=== PATIENT | female | born 1940 | race Caucasian/White ===

== ENCOUNTER → 2016-09-27 | Outpatient (REF) | payer MEDICARE ==
[2016-09-27 13:46] LABS: PERCENT SATURATION 25.4 % (13.2-37.4)
== END ==
LOC: M LAB REF 12:53
PROVIDERS: ATTEND Internal Medicine
DX: D50.9 Iron deficiency anemia, unspecified (principal)

== ENCOUNTER → 2016-11-02 | Outpatient (CLI) | payer MEDICARE ==
--- NOTE | 2016-11-02 12:35 | REPMRS ---
Patient History The patient states she has not had a clinical breast exam in over a year. Patient is postmenopausal and is nulliparous. No known family history of cancer. Digital Woman Screen Mammo: November 02, 2016 - Exam #: [id number] Bilateral CC and MLO view(s) were taken. Technologist: Yolanda Kim, Technologist Prior study comparison: October 05, 2012, bilateral digital mammo screening bilat, performed at [facility]. FINDINGS: The breast tissue is heterogeneously dense. This may lower the sensitivity of mammography. There has been no change in the appearance of the mammogram from the prior studies. There is a moderate amount of residual fibroglandular tissue which is fairly symmetric. There is no interval development of dominant mass, areas of architectural distortion, or clustered microcalcification typical of malignancy. ASSESSMENT: BI-RADS/ACR category 1 mammogram. Negative. Recommendation Routine screening mammogram in 1 year (for women over age 40). This mammogram was interpreted with the aid of an FDA-approved computer-aided dectection system. Electronically Signed By: Maynor Gloria MD 11/02/16 [id number]
--- NOTE | 2016-11-03 09:01 | DEXA ---
AP SPINE L1 - L4 0.851 -2.8 -0.7 LT FEMUR TOTAL 0.644 -2.9 -0.9 RT FEMUR TOTAL 0.657 -2.8 -0.8 TOTAL BODY TOTAL OTHER DUAL FEMUR FRAX* ASSESSMENT Risk factors: History of adult fracture. 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 The density of the spine has decreased 5.1% since 07/2014. The density of the left hip has decreased 9.2% since 07/2014. The density of the right hip has decreased 5.3% since 07/2014. The decreased density of the spine does represent a significant change. The decreased density of the left hip does represent a significant change. The decreased density of the right hip does represent a significant change. FOLLOW-UP: Recommendation for the next bone density exam: 2 years. YAMILKA
== END ==
LOC: M WHC 11:03
PROVIDERS: ATTEND Internal Medicine
DX: Z12.31 Encounter for screening mammogram for malignant neoplasm of breast (principal); M85.80 Other specified disorders of bone density and structure, unspecified site; M81.0 Age-related osteoporosis without current pathological fracture
CPT/HCPCS: 77080; G0202

== ENCOUNTER 2016-12-04 18:44 | Emergency (ER) | payer MEDICARE ==
[~2016-12-04] VITALS: Ht 162.6 cm; Wt 55.3 kg
[2016-12-04] MEDS ORDERED: ADV500INH (18:55)
[2016-12-04] MEDS ORDERED: FURO20TA2 (18:55)
[2016-12-04] MEDS ORDERED: ALEN70TA39 (18:55)
[2016-12-04] MEDS ORDERED: SERT-155 (18:55)
[2016-12-04] MEDS ORDERED: FERR32TA (18:55)
[2016-12-04] MEDS ORDERED: LOSA50TA20 (18:55)
[2016-12-04] MEDS ORDERED: MONT10TA2 (18:55)
[2016-12-04 20:12] VITALS: BP 137/60
--- NOTE | 2016-12-04 20:37 | REP ---
Clinical: Trauma. Technique: AP and lateral views of the right humerus. Findings: Age-related osteopenia and degenerative changes are appreciated. No acute fracture or dislocation. Impression: Age-related changes. No acute fracture dislocation. Signed by Khanh Vaughn MD 12/04/2016 08:29 P
--- NOTE | 2016-12-04 20:38 | REP ---
Clinical: Trauma. Technique: AP and lateral views of the right forearm. Findings: Age-related osteopenia and degenerative changes at the elbow and wrist. No acute fracture dislocation. No subcutaneous emphysema or radiodense foreign body. Impression: No acute fracture or dislocation. Signed by Khanh Vaughn MD 12/04/2016 08:30 P
== END 2016-12-04 20:22 | disposition home or self-care (01) ==
LOC: M ED 19:37
DX: S50.11XA Contusion of right forearm, initial encounter (principal); W54.1XXA Struck by dog, initial encounter; Y92.019 Unspecified place in single-family (private) house as the place of occurrence of the external cause; Y93.89 Activity, other specified; Y99.9 Unspecified external cause status; I50.9 Heart failure, unspecified; J44.9 Chronic obstructive pulmonary disease, unspecified; Z79.51 Long term (current) use of inhaled steroids; Z79.899 Other long term (current) drug therapy

== ENCOUNTER 2017-01-24 12:05 | Observation (INO) | payer MEDICARE ==
[~2017-01-24] VITALS: Ht 167.6 cm; Wt 53.9 kg
[~2017-01-24 12:05] MED LIST: ADV500INH; ALEN70TA39 PO; FERR32TA; FURO20TA2 PO; LOSA50TA20; MONT10TA2 PO; SERT-155 PO
[2017-01-24] MEDS ORDERED: PROL60SO INJ (12:21)
[2017-01-24] MEDS ORDERED: PERCOCET 5MG/325MG TAB PO ONE ×2 (13:00→15:15)
[2017-01-24 13:34] LABS: BASO % 0.9 % (0.0-1.0); EOS # 0.1 K/mm3 (0.0-0.50); LARGE UNSTAINED CELL # 0.1 K/mm3 (0.0-0.4); LARGE UNSTAINED CELL % 1.9 % (0.0-4.0); LYMPH # 0.9 K/mm3 (1.5-4.5); LYMPH % 23.3 % (24.0-44.0); MEAN CORPUSCULAR HEMOGLOBIN 28.5 pg (27.0-33.0); MEAN CORPUSCULAR HGB CONC 31.3 g/dl (32.0-36.5); MEAN CORPUSCULAR VOLUME 90.9 fl (80.0-96.0); MONO # 0.3 K/mm3 (0.0-0.8); MONO % 7.8 % (0.0-5.0); NEUTROPHILS # 2.4 K/mm3 (1.8-7.7); NEUTROPHILS % 64.1 % (36.0-66.0); PLATELET COUNT, AUTOMATED 184 k/mm3 (150-450); RED CELL DISTRIBUTION WIDTH 13.2 % (11.5-14.5); WHITE BLOOD COUNT 3.7 K/mm3 (4.0-10.0)
[2017-01-24 13:45] LABS: ANION GAP 2 MEQ/L (8-16); BLOOD UREA NITROGEN 19 MG/DL (7-18); CALCIUM LEVEL 8.9 MG/DL (8.8-10.2); CARBON DIOXIDE LEVEL 33 MEQ/L (21-32); CHLORIDE LEVEL 106 MEQ/L (98-107); CREATININE FOR GFR 0.62 MG/DL (0.55-1.02); GLOMERULAR FILTRATION RATE > 60.0 (>39); GLUCOSE, FASTING 73 MG/DL (83-110); SODIUM LEVEL 141 MEQ/L (136-145)
[2017-01-24 14:04] LABS: ERYTHROCYTE SEDIMENTATION RATE 10 mm/hr (0-30)
--- NOTE | 2017-01-24 14:42 | REP ---
THORACIC SPINE: Three views of the thoracic spine are performed. There are old compression deformities of T2, T4, and L1 vertebral bodies, unchanged since the CT scan of 12/31/2014. No acute fracture or dislocation is seen. Mild diffuse degenerative changes are present. There is curvature of the thoracic spine convex to the right. The posterior elements are intact. IMPRESSION: Degenerative changes. Old compression deformities as above without evidence of acute fracture or dislocation. Signed by Maynor Gloria MD 01/24/2017 04:45 P
--- NOTE | 2017-01-24 14:43 | REP ---
LEFT SHOULDER: Three views of the left shoulder are performed. There is no acute fracture or dislocation. There is mild spurring and joint space narrowing at the acromioclavicular joint. IMPRESSION: Degenerative changes. No evidence of acute fracture or dislocation. Signed by Maynor Gloria MD 01/24/2017 04:45 P
--- NOTE | 2017-01-24 15:02 | REP ---
CHEST, TWO VIEWS: HISTORY: Chest pain. COMPARISON: 05/18/2012. The lungs are hyperinflated. Linear densities are present in the left lower lobe consistent with scarring. There is blunting of the left costophrenic angle due to pleural thickening. The heart is normal in size. The pulmonary vasculature is normal in appearance. The bony structure is osteopenic. There is an old compression fracture of a lower thoracic vertebral body with severe height loss. IMPRESSION: Left lower lobe scarring. Signed by Carlos Andrade MD 01/24/2017 03:21 P
[2017-01-24] MEDS ORDERED: ASPIRIN 81 MG CHEW TABLET PO ONE (15:30)
[2017-01-24] MEDS ORDERED: ISOVUE-370 76% 100ML VIAL (Q9967) As Ordered ONE (16:01)
--- NOTE | 2017-01-24 16:01 | HPEPDOC ---
General Date of Admission 01-24-17 Chief Complaint The patient is a 76-year-old female admitted with a reason for visit of Shoulder Pain. Source: Patient Timing/Duration: Day(s) (3) Severity: Mild History of Present Illness Ms. Orourke is a pleasant 76 y/o female with past medical history of osteopenia, depression, HTN, COPD who presents w/ CC of three days of achy left shoulder and arm pain, the pt states that three days ago she noticed some achy pain in her left shoulder that traveled down her left arm, stopping before it reached her fingertips. The pt states it did not radiate to her neck or chest or back and states that standing around makes the pain worse as it causes her to concentrate on it, apparently laying back on her arm makes it feel better. She denied associated n/v, cough or SOB, sweating or experiencing a racing heart. States the arm pain is not worsened with exertion nor taking a deep breath in nor palpation of the arm. She denies paralysis, loss of sensation or weakness associated with her left arm. She denies fever, muscle aches or chills, denies prolonged immobility nor hx of stroke, clots or heart attack. Denies change in vision nor headache. She states the pain is about a 2/10 currently. Pt denies hx of heart failure or extremity swelling but states she takes Lasix and has been for quite a while, she is unsure why. She does admit to chronic episodes many years ago of re-current pneumonia. She has no other active complaints. Home Medications Scheduled (Sertraline HCl) 50 Mg Tab, 50 MG PO DAILY, (Reported) (Prolia) 60 Mg/Ml Shalonda, 60 MG INJ ASDIRECTED, (Reported) Every 6 Months Alendronate Sodium (Alendronate Sodium) 70 Mg Tab, 70 MG PO ASDIRECTED, ( Reported) Weekly-Mondays Ferrous Gluconate (Ferrous Gluconate) 324 Mg Tab, 324 MG PO DAILY, (Reported) Furosemide (Furosemide) 20 Mg Tab, 20 MG PO DAILY, (Reported) Losartan Potassium (Losartan Potassium) 50 Mg Tab, 50 MG PO DAILY, (Reported) Montelukast Sodium (Montelukast Sodium) 10 Mg Tab, 10 MG PO DAILY, (Reported) Allergies Coded Allergies: No Known Allergies (Unverified , 12/04/16) Family History Significant Family History: No pertinent family hx Social History * Smoker: Denies Alcohol: Denies Drugs: denies Psychosocial History: No pertinent psych hx Review of Symptoms Constitutional: Denies: Chills, Fever, Malaise, Night Sweats, Weakness Eyes: Denies: Pain, Vision change, Conjunctivae inflammation ENT: Denies: Head Aches Skin: Denies: Rash, Lesions Pulmonary: Denies: Dyspnea, Cough, Pleuritic Chest Pain Cardiovascular: Denies: Chest Pain, Palpitations, Orthopnea, Edema, Lt Headedness Gastrointestinal: Denies: Nausea, Vomiting, Abdominal Pain, Diarrhea, Constipation Genitourinary: Denies: Dysuria Musculoskeletal: Reports: Shoulder Pain, Arm Pain (left), Denies: Neck Pain, Spasms Neurological: Denies: Weakness, Numbness, Incoordination, Change in speech Psych: Reports: Mood Normal Physical Examination General Exam: Positive: Alert, Cooperative, No Acute Distress Eye Exam: Positive: Conjunctiva & lids normal, EOMI, Negative: Sclera icteric, Ptosis ENT Exam: Positive: Atraumatic, Mucous membr. moist/pink, Pharynx Normal, Tongue Midline, Nares Patent, Negative: Pharyngeal Edema Neck Exam: Positive: Supple, Negative: JVD Chest Exam: Negative: Normal air movement (pt has coarse crackles in LLL where area of chronic scarring is located), Rales, Rhonchi, Wheezing, Diminished Heart Exam: Positive: Rate Normal, Normal S1, Normal S2, Negative: Gallops, Murmurs, Rubs Telemetry: Positive: No significant arrhythmia Abdomen Exam: Positive: Normal bowel sounds, Soft, Negative: Tenderness, Hepatospenomegaly Extremity Exam: Positive: Normal pulses, Negative: Clubbing, Cyanosis, Edema Psych Exam: Positive: Mental status NL Vital Signs Vital Signs Date Time Temp Pulse Resp B/P (MAP) Pulse Ox O2 Delivery O2 Flow Rate FiO2 01/24/17 15:15 16 01/24/17 13:23 62 133/69 (90) 96 Room Air 01/24/17 12:06 98.2 Laboratory Data Labs 24H Laboratory Tests 2 01/24/17 13:11: White Blood Count 3.7L, Red Blood Count 4.62, Hemoglobin 13.2, Hematocrit 42.0, Mean Corpuscular Volume 90.9, Mean Corpuscular Hemoglobin 28.5, Mean Corpuscular Hemoglobin Concent 31.3L, Red Cell Distribution Width 13.2, Platelet Count 184, Neutrophils (%) (Auto) 64.1, Lymphocytes (%) (Auto) 23.3L, Monocytes (%) (Auto) 7.8H, Eosinophils (%) (Auto) 2.0, Basophils (%) (Auto) 0.9 , Neutrophils # (Auto) 2.4, Lymphocytes # (Auto) 0.9L, Monocytes # (Auto) 0.3, Eosinophils # (Auto) 0.1, Basophils # (Auto) 0.0, Large Unclassified Cells % 1.9 , Large Unclassified Cells # 0.1, Erythrocyte Sedimentation Rate 10, Anion Gap 2L, Glomerular Filtration Rate > 60.0, Blood Urea Nitrogen 19H, Creatinine 0.62 , Sodium Level 141, Potassium Level 5.0, Chloride Level 106, Carbon Dioxide Level 33H, Calcium Level 8.9, Troponin I < 0.02 CBC/BMP Laboratory Tests 01/24/17 13:11 Red Blood Count 4.62, Mean Corpuscular Volume 90.9, Mean Corpuscular Hemoglobin 28.5, Mean Corpuscular Hemoglobin Concent 31.3 L, Red Cell Distribution Width 13.2, Neutrophils (%) (Auto) 64.1, Lymphocytes (%) (Auto) 23.3 L, Monocytes (%) (Auto) 7.8 H, Eosinophils (%) (Auto) 2.0, Basophils (%) (Auto) 0.9, Neutrophils # (Auto) 2.4, Lymphocytes # (Auto) 0.9 L, Monocytes # (Auto) 0.3, Eosinophils # (Auto) 0.1, Basophils # (Auto) 0.0, Calcium Level 8.9 Problems (1) Left shoulder pain Status: Acute Response to Treatment: Stable Problem Text: MSK vs ACS R/O pts left shoulder and arm pain is non-reproducible on exam, sensation, reflexes and strength are preserved as well as structural integrity of her GH joint Believe this is musculoskeletal in origin and not due to radiation of pain for ACS. Left shoulder X-ray negative for acute findings thoracic spine x-ray show degen changes, old compression deformities w/o fracture or dislocation CTA neg. for PE will schedule PRN Nitro., lipitor 40 mg QD & continue pts Lasix., although at this time uncertain why she is on it? ( no echo. 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 neg in ED, given ASA in ED EKG in ED showed minimal ST elevation in 2 continuous leads V2 and V3 for two consecutive beats ( about 1 mm elevation), however past EKG from 2013 also showed minimal elevation in same leads-since pt is an elderly female w/ essentially no risk factors for ACS- will observe for 24 hours in tele. ED has spoken to Dr. Sharpe who has recommended outpt stress test when pt d/c- likely tomorrow if no events overnight continue to monitor (2) Chest pain Status: Acute Response to Treatment: Stable Problem Text: pt has no chest wall pain or discomfort on exam even with physical palpitation of chest suspect this could have been radiation of left shoulder pain (please see above) CXR shows LLL scarring continue to monitor will order Nitro paste PRN (3) Leukopenia Status: Acute Response to Treatment: Stable Problem Text: 3.7 now was 4.8 in 2013 would continue to monitor likely this is pt's baseline (4) DVT prophylaxis Status: Acute Response to Treatment: Stable Problem Text: scd teds Plan / VTE VTE Prophylaxis Ordered?: Yes GME ATTESTATION GME ATTESTATION My preceptor for this patient encounter was physically present in the building during the encounter and was fully available. As needed, all aspects of the patient interview, examination, medical decision making process, and medical care plan development were reviewed and approved by the preceptor. Preceptor is aware and concurs with the plan as stated in the body of this note and will attest to such by his/her cosignature. POWER MADRIGAL DO Jan 24, 2017 16:01
--- NOTE | 2017-01-24 16:30 | REP ---
CT of the chest with IV contrast, CT pulmonary artery angiography: Comparison is 12/31/2014. There are no emboli in the pulmonary trunk or central pulmonary arteries. There are no emboli in the pulmonary lobe or segment branches. There are no infiltrates or effusions. There is chronic stable parenchymal scarring in the left lung. There is a stable pleural based 7 mm lung nodule medially in the right lower lobe on image 45, unchanged. There is no mediastinal or hilar adenopathy. No axillary adenopathy. The thoracic aorta is unremarkable except for occasional calcified atheroma. Cardiac size is normal. There are the visualized upper abdominal contents are unremarkable. Impression: There are no pulmonary emboli. There is chronic stable scarring in the left lung. There is a stable granuloma in the right lower lobe. No acute infiltrate or effusion. No adenopathy or mass. Signed by Maynor Perez MD 01/24/2017 04:21 P
[2017-01-24] MEDS ORDERED: FERR325T16 PO (18:13)
[2017-01-24] MEDS ORDERED: LOSA50TA20 PO (18:13)
[2017-01-24] MEDS ORDERED: NITROGLYCERIN 0.3 MG SUBL TAB SL PRN (18:45)
[2017-01-24] MEDS ORDERED: ATORVASTATIN 20 MG TAB PO ONE (18:45)
--- NOTE | 2017-01-24 19:05 | ECGEPIP ---
Stationary ECG Study [facility] - ED Test Date: 2017-01-24 Pat Name: GEORGI LAM Department: Room: - Gender: F [employer]: ct : 1940 Requested By: Isela Wolf Order Number: [id number] Reading MD: Isela Wolf Measurements Intervals [place] Rate: 65 P: 76 [place]: 163 QRS: 2 QRSD: 97 T: 24 QT: 388 QTc: 404 Interpretive Statements SINUS RHYTHM POSSIBLE LEFT ATRIAL ENLARGEMENT INCOMPLETE RIGHT BUNDLE BRANCH BLOCK Rr' SIMILAR 10/25/12 Electronically Signed On 01-24-2017 19:05:47 EDT by Isela Wolf
[2017-01-24 20:10] VITALS: BP 143/70
[2017-01-24] MEDS ORDERED: SLF 3 ML SYR IV PRN (20:30)
[2017-01-24] MEDS: SLF 3 ML SYR IV SCH (22:00)
[2017-01-24 23:59] VITALS: BP 119/61
[2017-01-25 04:45] VITALS: BP 142/68
[2017-01-25] MEDS: SLF 3 ML SYR IV SCH (06:03)
[2017-01-25] MEDS ORDERED: ALENDRONATE 35MG TABLET PO ONE (07:00)
[2017-01-25 07:26] LABS: BASO % 0.5 % (0.0-1.0); EOS # 0.2 K/mm3 (0.0-0.50); EOS % 4.2 % (0.0-3.0); LARGE UNSTAINED CELL # 0.1 K/mm3 (0.0-0.4); LARGE UNSTAINED CELL % 2.9 % (0.0-4.0); LYMPH # 1.3 K/mm3 (1.5-4.5); LYMPH % 30.4 % (24.0-44.0); MEAN CORPUSCULAR HEMOGLOBIN 29.1 pg (27.0-33.0); MEAN CORPUSCULAR HGB CONC 32.3 g/dl (32.0-36.5); MEAN CORPUSCULAR VOLUME 90.1 fl (80.0-96.0); MONO # 0.3 K/mm3 (0.0-0.8); MONO % 8.1 % (0.0-5.0); NEUTROPHILS % 53.9 % (36.0-66.0); PLATELET COUNT, AUTOMATED 171 k/mm3 (150-450); RED CELL DISTRIBUTION WIDTH 13.3 % (11.5-14.5); WHITE BLOOD COUNT 3.8 K/mm3 (4.0-10.0)
[2017-01-25 07:59] LABS: ANION GAP 6 MEQ/L (8-16); BLOOD UREA NITROGEN 14 MG/DL (7-18); CALCIUM LEVEL 8.3 MG/DL (8.8-10.2); CARBON DIOXIDE LEVEL 29 MEQ/L (21-32); CHLORIDE LEVEL 105 MEQ/L (98-107); CREATININE FOR GFR 0.55 MG/DL (0.55-1.02); GLOMERULAR FILTRATION RATE > 60.0 (>39); GLUCOSE, FASTING 86 MG/DL (83-110); POTASSIUM SERUM 4.2 MEQ/L (3.5-5.1); SODIUM LEVEL 140 MEQ/L (136-145)
[2017-01-25 08:00] VITALS: BP 150/70
[2017-01-25] MEDS ORDERED: MONTELUKAST 10 MG TAB PO SCH (09:00)
[2017-01-25] MEDS ORDERED: SERTRALINE HCL 50 MG TAB PO SCH (09:00)
[2017-01-25] MEDS ORDERED: LOSARTAN 50 MG TAB PO SCH (09:00)
[2017-01-25] MEDS ORDERED: ATORVASTATIN 20 MG TAB PO SCH (09:00)
[2017-01-25] MEDS ORDERED: FUROSEMIDE 20 MG TAB PO SCH (09:00)
[2017-01-25] MEDS ORDERED: ASPIRIN 81 MG ENTERIC TAB PO SCH (09:00)
[2017-01-25] MEDS ORDERED: FERROUS GLUCONATE 324 MG TAB PO SCH (09:00)
[2017-01-25 09:40] VITALS: BP 150/70
[2017-01-25 12:00] VITALS: BP 146/72
[2017-01-25] MEDS ORDERED: ATOR1TAB21 PO (13:40)
[2017-01-25] MEDS ORDERED: ASPI81TAEC PO (13:40)
--- NOTE | 2017-01-25 14:01 | DS.PDOC ---
Discharge Summary General Date of Admission Jan 24, 2017 at 17:53 Date of Discharge 01-25-17 Discharge Summary PROCEDURES PERFORMED DURING STAY: None ADMITTING DIAGNOSES: 1. Left shoulder pain r/o ACS vs MSK etiology 2. Chest pain 3. Leukopenia DISCHARGE DIAGNOSES: 1. Left shoudler and arm pain 2. Bradycardia 3. Leukopenia COMPLICATIONS/CHIEF COMPLAINT: Chest Pain. HISTORY OF PRESENT ILLNESS: Ms. Orourke is a pleasant 76 y/o female who presented w/ CC of acute onset three days prior of achy left shoulder and arm pain. HOSPITAL COURSE: During the course of her hospital stay, the pt did not again experience any left arm pain, nor chest pain or discomfort, she was not ever SOB nor had palpitations. On day of d/c she stated she was feeling quite well. The pts cardiac enzymes were trended and troponins x4 were all negative, repeat EKG on day of d/c did not show any interval change from prior days EKG in ED that showed minimal 1 mm elevation in V1 and V2 for two consectuive beats, consistent with early re-polarization. Pt denied n/v and stated that she was eating well. She was admitted to cardiac tele unit and there were no concerning rhythm disturbances nor changes seen overnight on telemetry, she did have a few episodes of bradycardia w/ rate in the 50's, however patient was asx. suspect this is normal for her. OF note when pt was first admitted, there had been concern of chest pain, however on day of admission/presentation she denied active chest pain, stating the pain and achy discmfort was located solely in her left shoulder and radiating down her arm. DISCHARGE MEDICATIONS: Please see below. ALLERGIES: Please see below. PHYSICAL EXAMINATION ON DISCHARGE: VITAL SIGNS: Please see below. GENERAL: pleasant, conversant, in NAD, sitting comfortably in bed not-labored HEENT: NCAT, EOMI, PERRLA, tongue midline, moist mucus membranes, nares patent b /l,neck supple, trachea midline, no JVD appreciated CARDIOVASCULAR EXAMINATION: RRR, no murmurs, gallops or rubs appreciated, normal s1 and s2 RESPIRATORY EXAMINATION: CTA b/l, no wheezing. rales appreciated, note pt does have crackles on LLL-she has CXR (please see below) findings consistent with chronic scarring from past medical history of chronic and recurring pneumonia. ABDOMINAL EXAMINATION: soft, non-distended, nabsx4, no rebound ridgity or guarding appreciated, no hepatomegaly EXTREMITIES: no cyanosis,clubbing or edema appreciated SKIN: intact NEUROLOGICAL EXAMINATION: no focal deficits appreciated PSYCHIATRIC EXAMINATION: normal affect, appropriate mood LABORATORY DATA: Please see below. IMAGING: CTA chest 01-24-17 Impression: There are no pulmonary emboli. There is chronic stable scarring in the left lung. There is a stable granuloma in the right lower lobe. No acute infiltrate or effusion. No adenopathy or mass. CXR 01-24-17 IMPRESSION: Left lower lobe scarring. Left shoulder x-ray 01-24-17 IMPRESSION: Degenerative changes. No evidence of acute fracture or dislocation. Thoracic Spine x-ray 01-24-17 IMPRESSION: Degenerative changes. Old compression deformities as above without evidence of acute fracture or dislocation. PROGNOSIS: Stable ACTIVITY: As tolerated DIET: As tolerated DISCHARGE PLAN: Pt is d/c on lipitor 40 mg QD, baby aspirin daily and appt was made by nurse for f/u with Cardiology outpt for future stress test., pt is to f/u with PCP within one week of d/c as well. Pt is not on any home medications that would cause bradycardia, would recommend caution when prescribing drugs that can cause bradycardia as pt had brief episodes of asymptomatic slow HR in the unit. ( HR 50's), suspect this is normal for her. DISPOSITION: Stable DISCHARGE INSTRUCTIONS: 1. F/u with cardiology within one week of d/c 2. F/u with PCP within one week of d/c ITEMS TO FOLLOWUP ON ON OUTPATIENT: 1. F/u with Cardiology and PCP within one week of d.c DISCHARGE CONDITION: Stable TIME SPENT ON DISCHARGE: Greater than 30 minutes. Vital Signs/I&Os Vital Signs Date Time Temp Pulse Resp B/P (MAP) Pulse Ox O2 Delivery O2 Flow Rate FiO2 01/25/17 12:00 97.7 60 18 146/72 (96) 96 Room Air I&O- Last 24 Hours up to 6 AM 01/25/17 06:00 Intake Total 300 ml Output Total 0 ml Balance 300 ml Laboratory Data Labs 24H Laboratory Tests 2 01/24/17 19:16: Total Creatine Kinase 37, Creatine Kinase MB 1.0, Creatine Kinase MB Relative Index 2.70, Troponin I < 0.02 01/24/17 23:57: Total Creatine Kinase 36, Creatine Kinase MB 1.0, Creatine Kinase MB Relative Index 2.77, Troponin I < 0.02 01/25/17 07:11: Total Creatine Kinase 35, Creatine Kinase MB 1.0, Creatine Kinase MB Relative Index 2.85, Troponin I < 0.02, White Blood Count 3.8L, Red Blood Count 4.42, Hemoglobin 12.9, Hematocrit 39.9, Mean Corpuscular Volume 90.1, Mean Corpuscular Hemoglobin 29.1, Mean Corpuscular Hemoglobin Concent 32.3, Red Cell Distribution Width 13.3, Platelet Count 171, Neutrophils (%) (Auto) 53.9, Lymphocytes (%) (Auto) 30.4, Monocytes (%) (Auto) 8.1H, Eosinophils (%) (Auto) 4.2H, Basophils (%) (Auto) 0.5, Neutrophils # (Auto) 2.0, Lymphocytes # (Auto) 1.3L, Monocytes # (Auto) 0.3, Eosinophils # (Auto) 0.2, Basophils # (Auto) 0.0, Large Unclassified Cells % 2.9, Large Unclassified Cells # 0.1, Anion Gap 6L, Glomerular Filtration Rate > 60.0, Blood Urea Nitrogen 14, Creatinine 0.55, Sodium Level 140, Potassium Level 4.2, Chloride Level 105, Carbon Dioxide Level 29, Calcium Level 8.3L CBC/BMP Laboratory Tests 01/25/17 07:11 Red Blood Count 4.42, Mean Corpuscular Volume 90.1, Mean Corpuscular Hemoglobin 29.1, Mean Corpuscular Hemoglobin Concent 32.3, Red Cell Distribution Width 13.3 , Neutrophils (%) (Auto) 53.9, Lymphocytes (%) (Auto) 30.4, Monocytes (%) (Auto ) 8.1 H, Eosinophils (%) (Auto) 4.2 H, Basophils (%) (Auto) 0.5, Neutrophils # ( Auto) 2.0, Lymphocytes # (Auto) 1.3 L, Monocytes # (Auto) 0.3, Eosinophils # ( Auto) 0.2, Basophils # (Auto) 0.0, Calcium Level 8.3 L, Total Creatine Kinase 35 Discharge Medications Scheduled (Sertraline HCl) 50 Mg Tab, 50 MG PO DAILY, (Reported) (Prolia) 60 Mg/Ml Shalonda, 60 MG INJ ASDIRECTED, (Reported) Every 6 Months Alendronate Sodium (Alendronate Sodium) 70 Mg Tab, 70 MG PO ASDIRECTED, ( Reported) Weekly-Mondays Aspirin (Aspirin EC) 81 Mg Tabec, 81 MG PO DAILY Atorvastatin Calcium (Atorvastatin Calcium) 20 Mg Tab, 40 MG PO DAILY Ferrous Gluconate (Ferrous Gluconate) 324 Mg Tab, 324 MG PO DAILY, (Reported) Furosemide (Furosemide) 20 Mg Tab, 20 MG PO DAILY, (Reported) Losartan Potassium (Losartan Potassium) 50 Mg Tab, 50 MG PO DAILY, (Reported) Montelukast Sodium (Montelukast Sodium) 10 Mg Tab, 10 MG PO DAILY, (Reported) Allergies Coded Allergies: No Known Allergies (Unverified , 12/04/16) POWER MADRIGAL DO Jan 25, 2017 14:01 LYUDMILA ERIC Jan 26, 2017 17:04
--- NOTE | 2017-01-25 20:28 | ECGEPIP ---
Stationary ECG Study [facility] Test Date: 2017-01-25 Pat Name: GEORGI LAM Department: Room: [place] [address] Gender: F [employer] Specialist: [place] : 1940 Requested By: POWER MADRIGAL Order Number: [id number] Reading MD: Benny Pineda Measurements Intervals [place] Rate: 56 P: 72 [place]: 177 QRS: -9 QRSD: 89 T: 34 QT: 429 QTc: 415 Interpretive Statements SINUS BRADYCARDIA Normal otherwise Slower rate than 01/24/17. Electronically Signed On 01-25-2017 20:27:41 EDT by Benny Pineda
[2017-01-31] MEDS ORDERED: ALENDRONATE 70 MG TABLET (FOSAMAX) PO SCH (07:00)
== END 2017-01-25 14:08 | disposition home or self-care (01) ==
LOC: M ED 12:05 → M ED INP 17:53 → M PCU 20:10
PROVIDERS: ADMIT Internal Medicine; ATTEND Hospitalist
DX: M79.602 Pain in left arm (principal); M25.512 Pain in left shoulder; R07.89 Other chest pain; R00.1 Bradycardia, unspecified; D72.819 Decreased white blood cell count, unspecified; I10 Essential (primary) hypertension; J44.9 Chronic obstructive pulmonary disease, unspecified; M89.9 Disorder of bone, unspecified; Z79.82 Long term (current) use of aspirin; Z79.899 Other long term (current) drug therapy; R68.84 Jaw pain
CPT/HCPCS: 36415; 71020; 71275; 72072; 73030; 80048; 82550; 82553; 84484; 85025; 85652; 93005; 99285; G0378; Q9967

== ENCOUNTER → 2017-02-09 | Outpatient (REF) | payer MEDICARE ==
[~2017-02-09] MED LIST changes: +ASPI81TAEC PO; +ATOR1TAB21 PO; +FERR325T16 PO; +LOSA50TA20 PO; +PROL60SO INJ
[2017-02-09 17:16] LABS: PERCENT SATURATION 29.6 % (13.2-45.0)
[2017-02-09 19:11] LABS: MEAN CORPUSCULAR HGB CONC 31.7 g/dl (32.0-36.5); MEAN CORPUSCULAR VOLUME 91.5 fl (80.0-96.0); REASON FOR REVIEW COMPREHENSIVE REVIEW; RED CELL DISTRIBUTION WIDTH 13.3 % (11.5-14.5); WHITE BLOOD COUNT 3.9 K/mm3 (4.0-10.0)
[2017-02-09 19:37] LABS: EOSINOPHILS 2 % (0-5)
== END ==
LOC: M LAB REF 16:44
PROVIDERS: ATTEND Internal Medicine
DX: D72.819 Decreased white blood cell count, unspecified (principal)

== ENCOUNTER → 2017-10-25 | Outpatient (REF) | payer MEDICARE ==
[2017-10-25 17:43] LABS: FERRITIN 100 NG/ML (8-252); IRON (FE) 70 UG/DL (50-170); PERCENT SATURATION 19.7 % (13.2-45.0); TOTAL IRON BINDING CAPACITY 356 UG/DL (250-450)
== END ==
LOC: M LAB REF 16:38
DX: D50.9 Iron deficiency anemia, unspecified (principal)
CPT/HCPCS: 83550

== ENCOUNTER → 2017-12-07 | Day surgery (SDC) | payer MEDICARE ==
[~2017-12-07] MED LIST changes: -ADV500INH; -ALEN70TA39 PO; -ASPI81TAEC PO; -ATOR1TAB21 PO; +BSS with VANC/TOB/EPI for EYE CASES IR; +CYCLOPENTOLATE 2% OPHTH SOLN 2ML BTL OD; -FERR325T16 PO; -FERR32TA; -FURO20TA2 PO; +HEALON DUET (HEALON 10MG/ML 0.55ML & HEALON ENDOCOAT 30MG/ML 0.85ML) As Ordered; +LIDOCAINE 1% SDV 5 ML VIAL As Ordered; +LIDOCAINE 3.5 % 1ML OPHTH TOPICAL GEL OU; -LOSA50TA20; -LOSA50TA20 PO; -MONT10TA2 PO; +MOXIFLOXACIN IN BSS 0.25MG/0.25ML INTRACAMERAL INJ (OR EYE ONLY)(J2280) As Ordered; +OFLOXACIN 0.3 % (OCUFLOX) OPTH SOL 5ML OD; +PHENYLEPHRINE 2.5% OPHTH SOL 2ML OD; +PHENYLEPHRINE HCL 10 % OPHTH. SOL 5ML OD; +POVIDONE-IODINE 5% OPHTH PREP SOL 30ML As Ordered; -PROL60SO INJ; +PROPOFOL 200 MG/20 ML VIAL As Ordered; -SERT-155 PO; +TRIAMCINOLONE PRES FR 40 MG/ML 1ML(TRIESENCE)(OR EYE ONLY)(J3300 PER 1MG) As Ordered; +TROPICAMIDE 1% OPHTH SOLN 2ML OD; +fentaNYL 100 MCG/2 ML INJECTION (J3010) As Ordered
== END | disposition home or self-care (01) ==
LOC: M SDC 14:00
DX: H26.9 Unspecified cataract (principal); Z53.9 Procedure and treatment not carried out, unspecified reason

== ENCOUNTER 2018-06-01 11:07 | Inpatient (IN) | payer MEDICARE ==
[2018-06-01] MEDS: ONDANSETRON 4MG/2ML VIAL (J2405) IV ×2 (11:18→12:00)
[2018-06-01] MEDS: MORPHINE 4 MG/ML 1ML VIAL/SYRINGE (J2270) IV ×3 (11:18→21:55)
[2018-06-01] MEDS ORDERED: MORPHINE 4 MG/ML 1ML VIAL/SYRINGE (J2270) IV (12:00)
[2018-06-01] MEDS: KETOROLAC 30 MG/ML VIAL (J1885) IV (12:09)
[2018-06-01] MEDS: NS 1,000 ML IV ×2 (12:39→19:52)
[2018-06-01] MEDS: PROPOFOL 200 MG/20 ML VIAL IV ×2 (12:45→13:15)
[2018-06-01] MEDS: NORCO, ANEXSIA 5/325MG TABLET (HYDROcodone/ACETAMINOPHEN) PO (13:30)
[2018-06-01] MEDS: NORCO 5/325MG TABLET (BULK FOR ED) PO (15:45)
[2018-06-01] MEDS ORDERED: BISACODYL 10 MG SUPP PR (20:00)
[2018-06-01] MEDS ORDERED: ONDANSETRON 4MG/2ML VIAL (J2405) IV (20:00)
[2018-06-01] MEDS ORDERED: BISACODYL 5 MG TAB PO (20:00)
[2018-06-01 20:19] LABS: BASO % 0.2 % (0.0-1.0); HEMATOCRIT 38.1 % (36.0-47.0); HEMOGLOBIN 11.7 g/dl (12.0-15.5); IMMATURE GRANULOCYTE % 0.1 % (0-3.0); LYMPH # 0.5 10^3/uL (1.5-4.5); LYMPH % 6.4 % (24.0-44.0); MEAN CORPUSCULAR HEMOGLOBIN 28.9 pg (27.0-33.0); MEAN CORPUSCULAR HGB CONC 30.7 g/dl (32.0-36.5); MEAN CORPUSCULAR VOLUME 94.1 fl (80.0-96.0); MONO % 12.2 % (0.0-5.0); NEUTROPHILS # 6.6 10^3/uL (1.8-7.7); NEUTROPHILS % 81.1 % (36.0-66.0); PLATELET COUNT, AUTOMATED 185 10^3/uL (150-450); RED BLOOD COUNT 4.05 10^6/uL (4.00-5.40); RED CELL DISTRIBUTION WIDTH 14.7 % (11.5-14.5); WHITE BLOOD COUNT 8.1 10^3/uL (4.0-10.0)
[2018-06-01 20:29] LABS: PROTHROMBIN TIME 12.3 SECONDS (12.1-14.4)
[2018-06-01] MEDS ORDERED: IPRATROPIUM 0.5MG/ALBUTEROL 2.5MG INH SOL UD 3ML (DUONEB)(J7620) NEB (20:30)
[2018-06-01 20:50] LABS: ALBUMIN 3.3 GM/DL (3.2-5.2); ALKALINE PHOSPHATASE 81 U/L (45-117); ALT/SGPT 27 U/L (12-78); ANION GAP 5 MEQ/L (8-16); AST/SGOT 32 U/L (7-37); BILIRUBIN,TOTAL 0.4 MG/DL (0.2-1.0); BLOOD UREA NITROGEN 19 MG/DL (7-18); CALCIUM LEVEL 8.2 MG/DL (8.8-10.2); CARBON DIOXIDE LEVEL 32 MEQ/L (21-32); CHLORIDE LEVEL 106 MEQ/L (98-107); CREATININE FOR GFR 0.62 MG/DL (0.55-1.30); GLOMERULAR FILTRATION RATE > 60.0 (>39); GLUCOSE, FASTING 103 MG/DL (70-100); POTASSIUM SERUM 4.3 MEQ/L (3.5-5.1); SODIUM LEVEL 143 MEQ/L (136-145); TOTAL PROTEIN 6.6 GM/DL (6.4-8.2)
[2018-06-01] MEDS ORDERED: LORazepam 2 MG TAB PO (22:45)
[2018-06-02] MEDS: THIAMINE 100 MG TAB PO ×3 (01:57→20:35)
[2018-06-02] MEDS: MORPHINE 4 MG/ML 1ML VIAL/SYRINGE (J2270) IV ×2 (02:49→21:05)
[2018-06-02 06:46] LABS: HEMATOCRIT 34.1 % (36.0-47.0); HEMOGLOBIN 10.4 g/dl (12.0-15.5); MEAN CORPUSCULAR HEMOGLOBIN 28.7 pg (27.0-33.0); MEAN CORPUSCULAR HGB CONC 30.5 g/dl (32.0-36.5); MEAN CORPUSCULAR VOLUME 94.2 fl (80.0-96.0); PLATELET COUNT, AUTOMATED 157 10^3/uL (150-450); RED BLOOD COUNT 3.62 10^6/uL (4.00-5.40); RED CELL DISTRIBUTION WIDTH 14.9 % (11.5-14.5); WHITE BLOOD COUNT 5.7 10^3/uL (4.0-10.0)
[2018-06-02 07:05] LABS: ANION GAP 5 MEQ/L (8-16); BLOOD UREA NITROGEN 16 MG/DL (7-18); CALCIUM LEVEL 7.8 MG/DL (8.8-10.2); CARBON DIOXIDE LEVEL 30 MEQ/L (21-32); CHLORIDE LEVEL 107 MEQ/L (98-107); CREATININE FOR GFR 0.56 MG/DL (0.55-1.30); GLOMERULAR FILTRATION RATE > 60.0 (>39); GLUCOSE, FASTING 89 MG/DL (70-100); POTASSIUM SERUM 4.2 MEQ/L (3.5-5.1); SODIUM LEVEL 142 MEQ/L (136-145)
[2018-06-02] MEDS: LOSARTAN 50 MG TAB PO (09:00)
[2018-06-02] MEDS: MULTIVITAMINS/MINERALS THERAP 1 TAB PO (09:31)
[2018-06-02] MEDS: FOLIC ACID 1 MG TAB PO (09:31)
[2018-06-02] MEDS: SERTRALINE 100 MG TAB PO (09:31)
[2018-06-02] MEDS ORDERED: LIDOCAINE 2% INJ 100 MG/5 ML SDV (FOR ANES.) As Ordered (11:41)
[2018-06-02] MEDS ORDERED: PROPOFOL 200 MG/20 ML VIAL As Ordered ×4 (11:41)
[2018-06-02] MEDS ORDERED: MIDAZOLAM INJ 2 MG/2 ML VIAL (J2250) As Ordered (11:41)
[2018-06-02] MEDS ORDERED: ONDANSETRON 4MG/2ML VIAL (J2405) As Ordered ×2 (11:41→13:35)
[2018-06-02] MEDS ORDERED: fentaNYL 100 MCG/2 ML INJECTION (J3010) As Ordered (11:41)
[2018-06-02] MEDS: ceFAZolin 1GM INJ (J0690 PER 500MG) As Ordered (11:45)
[2018-06-02] MEDS: EPINEPHrine INJ 1 MG/ML 1ML AMP As Ordered (11:59)
[2018-06-02] MEDS: TRANEXAMIC ACID 100 MG/ML 10ML VIAL As Ordered (11:59)
[2018-06-02] MEDS: MORPHINE 10 MG/ML 1ML VIAL (J2270) IV ×3 (12:50→13:40)
[2018-06-02] MEDS ORDERED: MORPHINE 10 MG/ML 1ML VIAL (J2270) As Ordered (12:58)
[2018-06-02] MEDS ORDERED: fentaNYL 100 MCG/2 ML INJECTION (J3010) IV (13:15)
[2018-06-02] MEDS: LR 1,000 ML IV (13:15)
[2018-06-02] MEDS: ONDANSETRON 4MG/2ML VIAL (J2405) IV (13:32)
[2018-06-02] MEDS: PERCOCET 5MG/325MG TAB PO (13:35)
[2018-06-02] MEDS ORDERED: PERCOCET 5MG/325MG TAB As Ordered (13:35)
[2018-06-02] MEDS: NS 1,000 ML IV (15:52)
[2018-06-02] MEDS: ceFAZolin SOD 1 GM in D5W MINI-BAG PLUS 50 ML IV (19:08)
[2018-06-03] MEDS: ceFAZolin SOD 1 GM in D5W MINI-BAG PLUS 50 ML IV ×2 (01:32→06:45)
[2018-06-03] MEDS: MORPHINE 4 MG/ML 1ML VIAL/SYRINGE (J2270) IV (04:37)
[2018-06-03 06:53] LABS: HEMATOCRIT 29.3 % (36.0-47.0); MEAN CORPUSCULAR HGB CONC 30.7 g/dl (32.0-36.5); MEAN CORPUSCULAR VOLUME 94.5 fl (80.0-96.0); PLATELET COUNT, AUTOMATED 132 10^3/uL (150-450); RED CELL DISTRIBUTION WIDTH 14.3 % (11.5-14.5); WHITE BLOOD COUNT 7.7 10^3/uL (4.0-10.0)
[2018-06-03 07:33] LABS: ANION GAP 5 MEQ/L (8-16); BLOOD UREA NITROGEN 11 MG/DL (7-18); CALCIUM LEVEL 7.6 MG/DL (8.8-10.2); CARBON DIOXIDE LEVEL 30 MEQ/L (21-32); CHLORIDE LEVEL 105 MEQ/L (98-107); CREATININE FOR GFR 0.55 MG/DL (0.55-1.30); GLOMERULAR FILTRATION RATE > 60.0 (>39); GLUCOSE, FASTING 105 MG/DL (70-100); SODIUM LEVEL 140 MEQ/L (136-145)
[2018-06-03] MEDS: SENOKOT S TAB PO ×2 (08:55→20:55)
[2018-06-03] MEDS: THIAMINE 100 MG TAB PO ×2 (08:55→20:54)
[2018-06-03] MEDS: FOLIC ACID 1 MG TAB PO (08:55)
[2018-06-03] MEDS: SERTRALINE 100 MG TAB PO (08:55)
[2018-06-03] MEDS: MOM 30ML SUSPENSION UDC PO (08:55)
[2018-06-03] MEDS: MIRALAX *UNIT DOSE* 17GM PACKET PO (08:55)
[2018-06-03] MEDS: MULTIVITAMINS/MINERALS THERAP 1 TAB PO (08:55)
[2018-06-03] MEDS: LOSARTAN 50 MG TAB PO (15:48)
[2018-06-03] MEDS: RIVAROXABAN 10 MG TAB (XARELTO) PO (17:09)
[2018-06-03] MEDS: PERCOCET 5MG/325MG TAB PO (20:56)
[2018-06-04 06:56] LABS: HEMATOCRIT 26.9 % (36.0-47.0); HEMOGLOBIN 8.5 g/dl (12.0-15.5); MEAN CORPUSCULAR HEMOGLOBIN 29.2 pg (27.0-33.0); MEAN CORPUSCULAR HGB CONC 31.6 g/dl (32.0-36.5); MEAN CORPUSCULAR VOLUME 92.4 fl (80.0-96.0); PLATELET COUNT, AUTOMATED 153 10^3/uL (150-450); RED BLOOD COUNT 2.91 10^6/uL (4.00-5.40); RED CELL DISTRIBUTION WIDTH 13.7 % (11.5-14.5); WHITE BLOOD COUNT 8.8 10^3/uL (4.0-10.0)
[2018-06-04 07:42] LABS: ANION GAP 2 MEQ/L (8-16); BLOOD UREA NITROGEN 17 MG/DL (7-18); CALCIUM LEVEL 8.2 MG/DL (8.8-10.2); CARBON DIOXIDE LEVEL 34 MEQ/L (21-32); CHLORIDE LEVEL 102 MEQ/L (98-107); GLOMERULAR FILTRATION RATE > 60.0 (>39); GLUCOSE, FASTING 109 MG/DL (70-100); SODIUM LEVEL 138 MEQ/L (136-145)
[2018-06-04] MEDS: MULTIVITAMINS/MINERALS THERAP 1 TAB PO (09:31)
[2018-06-04] MEDS: MIRALAX *UNIT DOSE* 17GM PACKET PO (09:31)
[2018-06-04] MEDS: SERTRALINE 100 MG TAB PO (09:31)
[2018-06-04] MEDS: LOSARTAN 50 MG TAB PO (09:32)
[2018-06-04] MEDS: FOLIC ACID 1 MG TAB PO (09:32)
[2018-06-04] MEDS: THIAMINE 100 MG TAB PO (09:33)
[2018-06-04] MEDS: SENOKOT S TAB PO ×2 (09:33→21:44)
[2018-06-04] MEDS: MOM 30ML SUSPENSION UDC PO (09:33)
[2018-06-04] MEDS: RIVAROXABAN 10 MG TAB (XARELTO) PO (17:48)
[2018-06-04] MEDS: PERCOCET 5MG/325MG TAB PO ×2 (17:59→23:46)
[2018-06-05] MEDS: PERCOCET 5MG/325MG TAB PO ×3 (06:11→21:57)
[2018-06-05 06:47] LABS: HEMATOCRIT 25.8 % (36.0-47.0); HEMOGLOBIN 7.9 g/dl (12.0-15.5); MEAN CORPUSCULAR HGB CONC 30.6 g/dl (32.0-36.5); MEAN CORPUSCULAR VOLUME 94.9 fl (80.0-96.0); PLATELET COUNT, AUTOMATED 191 10^3/uL (150-450); RED BLOOD COUNT 2.72 10^6/uL (4.00-5.40); RED CELL DISTRIBUTION WIDTH 13.9 % (11.5-14.5); WHITE BLOOD COUNT 7.8 10^3/uL (4.0-10.0)
[2018-06-05 07:14] LABS: ANION GAP 3 MEQ/L (8-16); BLOOD UREA NITROGEN 21 MG/DL (7-18); CARBON DIOXIDE LEVEL 34 MEQ/L (21-32); CHLORIDE LEVEL 102 MEQ/L (98-107); CREATININE FOR GFR 0.55 MG/DL (0.55-1.30); GLOMERULAR FILTRATION RATE > 60.0 (>39); GLUCOSE, FASTING 98 MG/DL (70-100); POTASSIUM SERUM 3.8 MEQ/L (3.5-5.1); SODIUM LEVEL 139 MEQ/L (136-145)
[2018-06-05] MEDS: FOLIC ACID 1 MG TAB PO (08:28)
[2018-06-05] MEDS: SERTRALINE 100 MG TAB PO (08:28)
[2018-06-05] MEDS: MIRALAX *UNIT DOSE* 17GM PACKET PO (08:28)
[2018-06-05] MEDS: MOM 30ML SUSPENSION UDC PO (08:28)
[2018-06-05] MEDS: LOSARTAN 50 MG TAB PO (08:28)
[2018-06-05] MEDS: MULTIVITAMINS/MINERALS THERAP 1 TAB PO (08:28)
[2018-06-05] MEDS: SENOKOT S TAB PO ×2 (08:29→21:57)
[2018-06-05 17:50] LABS: HEMATOCRIT 24.9 % (36.0-47.0); HEMOGLOBIN 7.8 g/dl (12.0-15.5)
[2018-06-05] MEDS: RIVAROXABAN 10 MG TAB (XARELTO) PO (18:26)
[2018-06-06 06:31] LABS: HEMATOCRIT 24.6 % (36.0-47.0); HEMOGLOBIN 7.7 g/dl (12.0-15.5); MEAN CORPUSCULAR HEMOGLOBIN 28.8 pg (27.0-33.0); MEAN CORPUSCULAR HGB CONC 31.3 g/dl (32.0-36.5); MEAN CORPUSCULAR VOLUME 92.1 fl (80.0-96.0); PLATELET COUNT, AUTOMATED 217 10^3/uL (150-450); RED BLOOD COUNT 2.67 10^6/uL (4.00-5.40); WHITE BLOOD COUNT 5.6 10^3/uL (4.0-10.0)
[2018-06-06 06:58] LABS: ANION GAP 4 MEQ/L (8-16); BLOOD UREA NITROGEN 17 MG/DL (7-18); CALCIUM LEVEL 8.1 MG/DL (8.8-10.2); CARBON DIOXIDE LEVEL 34 MEQ/L (21-32); CHLORIDE LEVEL 102 MEQ/L (98-107); CREATININE FOR GFR 0.48 MG/DL (0.55-1.30); GLOMERULAR FILTRATION RATE > 60.0 (>39); GLUCOSE, FASTING 88 MG/DL (70-100); POTASSIUM SERUM 4.6 MEQ/L (3.5-5.1); SODIUM LEVEL 140 MEQ/L (136-145)
[2018-06-06] MEDS: MULTIVITAMINS/MINERALS THERAP 1 TAB PO ×3 (09:00→09:47)
[2018-06-06] MEDS: MIRALAX *UNIT DOSE* 17GM PACKET PO (09:36)
[2018-06-06] MEDS: FOLIC ACID 1 MG TAB PO (09:36)
[2018-06-06] MEDS: SERTRALINE 100 MG TAB PO (09:37)
[2018-06-06] MEDS: MOM 30ML SUSPENSION UDC PO (09:38)
[2018-06-06] MEDS: SENOKOT S TAB PO ×2 (09:38→20:09)
[2018-06-06] MEDS: LOSARTAN 50 MG TAB PO (09:38)
[2018-06-06] MEDS: PERCOCET 5MG/325MG TAB PO ×2 (12:38→20:19)
[2018-06-06 14:19] LABS: IMMEDIATE SPIN CROSSMATCH 1 1
[2018-06-06] MEDS: RIVAROXABAN 10 MG TAB (XARELTO) PO (17:37)
[2018-06-07 06:33] LABS: HEMATOCRIT 30.2 % (36.0-47.0); HEMOGLOBIN 9.6 g/dl (12.0-15.5); MEAN CORPUSCULAR HEMOGLOBIN 28.7 pg (27.0-33.0); MEAN CORPUSCULAR HGB CONC 31.8 g/dl (32.0-36.5); MEAN CORPUSCULAR VOLUME 90.4 fl (80.0-96.0); PLATELET COUNT, AUTOMATED 256 10^3/uL (150-450); RED BLOOD COUNT 3.34 10^6/uL (4.00-5.40); WHITE BLOOD COUNT 5.4 10^3/uL (4.0-10.0)
[2018-06-07 06:49] LABS: ANION GAP 7 MEQ/L (8-16); BLOOD UREA NITROGEN 14 MG/DL (7-18); CALCIUM LEVEL 8.2 MG/DL (8.8-10.2); CARBON DIOXIDE LEVEL 32 MEQ/L (21-32); CHLORIDE LEVEL 99 MEQ/L (98-107); CREATININE FOR GFR 0.48 MG/DL (0.55-1.30); GLOMERULAR FILTRATION RATE > 60.0 (>39); GLUCOSE, FASTING 86 MG/DL (70-100); POTASSIUM SERUM 4.2 MEQ/L (3.5-5.1); SODIUM LEVEL 138 MEQ/L (136-145)
[2018-06-07] MEDS: MOM 30ML SUSPENSION UDC PO (09:00)
[2018-06-07] MEDS: MIRALAX *UNIT DOSE* 17GM PACKET PO (09:00)
[2018-06-07] MEDS: SENOKOT S TAB PO (10:00)
[2018-06-07] MEDS: FOLIC ACID 1 MG TAB PO (10:00)
[2018-06-07] MEDS: LOSARTAN 50 MG TAB PO (10:00)
[2018-06-07] MEDS: MULTIVITAMINS/MINERALS THERAP 1 TAB PO (10:01)
[2018-06-07] MEDS: SERTRALINE 100 MG TAB PO (10:01)
== END 2018-06-07 10:45 | DRG 470 ==
LOC: M ED 11:07 → M ED INP 19:52 → M MS5PR 21:30
PROVIDERS: Internal Medicine
PROC: 0SRS0JA Replacement of Left Hip Joint, Femoral Surface with Synthetic Substitute, Uncemented, Open Approach (ICD-10-PCS; principal; 2018-06-02 10:47)
PROC: 30233N1 Transfusion of Nonautologous Red Blood Cells into Peripheral Vein, Percutaneous Approach (ICD-10-PCS; 2018-06-02 10:47)
PROC: 0PSDXZZ Reposition Left Humeral Head, External Approach (ICD-10-PCS; 2018-06-02 10:47)
DX: S72.042A Displaced fracture of base of neck of left femur, initial encounter for closed fracture (principal); D62 Acute posthemorrhagic anemia; S42.252A Displaced fracture of greater tuberosity of left humerus, initial encounter for closed fracture; M85.80 Other specified disorders of bone density and structure, unspecified site; F32.9 Major depressive disorder, single episode, unspecified; I10 Essential (primary) hypertension; J44.9 Chronic obstructive pulmonary disease, unspecified; W18.09XA Striking against other object with subsequent fall, initial encounter; Y93.K1 Activity, walking an animal; Y92.89 Other specified places as the place of occurrence of the external cause; S43.005A Unspecified dislocation of left shoulder joint, initial encounter; Z87.891 Personal history of nicotine dependence; Z79.899 Other long term (current) drug therapy; Z90.49 Acquired absence of other specified parts of digestive tract

== ENCOUNTER → 2018-06-15 | Outpatient (REF) ==
[2018-06-15 08:02] LABS: HEMOGLOBIN 10.1 g/dl (12.0-15.5); MEAN CORPUSCULAR HEMOGLOBIN 28.9 pg (27.0-33.0); MEAN CORPUSCULAR HGB CONC 31.6 g/dl (32.0-36.5); MEAN CORPUSCULAR VOLUME 91.4 fl (80.0-96.0); PLATELET COUNT, AUTOMATED 481 10^3/uL (150-450); RED CELL DISTRIBUTION WIDTH 14.5 % (11.5-14.5); WHITE BLOOD COUNT 5.4 10^3/uL (4.0-10.0)
== END ==
LOC: SKLAB5 07:55
DX: D64.9 Anemia, unspecified (principal)

== ENCOUNTER → 2018-06-22 | Outpatient (REF) ==
[2018-06-22 08:18] LABS: HEMOGLOBIN 10.7 g/dl (12.0-15.5); MEAN CORPUSCULAR HEMOGLOBIN 28.5 pg (27.0-33.0); MEAN CORPUSCULAR HGB CONC 30.6 g/dl (32.0-36.5); MEAN CORPUSCULAR VOLUME 93.1 fl (80.0-96.0); PLATELET COUNT, AUTOMATED 362 10^3/uL (150-450); RED BLOOD COUNT 3.76 10^6/uL (4.00-5.40); RED CELL DISTRIBUTION WIDTH 14.2 % (11.5-14.5); WHITE BLOOD COUNT 4.4 10^3/uL (4.0-10.0)
== END ==
LOC: SKLAB5 08:30
DX: D64.9 Anemia, unspecified (principal)

== ENCOUNTER → 2018-06-29 | Outpatient (REF) ==
[~2018-06-29] MED LIST changes: +ADV500INH; +ALEN70TA57 PO; +ASPI81TAEC PO; +ATOR1TAB21 PO; -BSS with VANC/TOB/EPI for EYE CASES IR; -CYCLOPENTOLATE 2% OPHTH SOLN 2ML BTL OD; +FERR325T16 PO; +FERR32TA; +FURO20TA2 PO; -HEALON DUET (HEALON 10MG/ML 0.55ML & HEALON ENDOCOAT 30MG/ML 0.85ML) As Ordered; +HYDR-3713 PO; -LIDOCAINE 1% SDV 5 ML VIAL As Ordered; -LIDOCAINE 3.5 % 1ML OPHTH TOPICAL GEL OU; +LOSA50TA73; +LOSA50TA73 PO; +MONT10TA2 PO; -MOXIFLOXACIN IN BSS 0.25MG/0.25ML INTRACAMERAL INJ (OR EYE ONLY)(J2280) As Ordered; +NORC1TAB4 PO; -OFLOXACIN 0.3 % (OCUFLOX) OPTH SOL 5ML OD; -PHENYLEPHRINE 2.5% OPHTH SOL 2ML OD; -PHENYLEPHRINE HCL 10 % OPHTH. SOL 5ML OD; -POVIDONE-IODINE 5% OPHTH PREP SOL 30ML As Ordered; +PROL60SO INJ; -PROPOFOL 200 MG/20 ML VIAL As Ordered; +SERT-138 PO; +SERT-155 PO; -TRIAMCINOLONE PRES FR 40 MG/ML 1ML(TRIESENCE)(OR EYE ONLY)(J3300 PER 1MG) As Ordered; -TROPICAMIDE 1% OPHTH SOLN 2ML OD; +XARE10TA PO; -fentaNYL 100 MCG/2 ML INJECTION (J3010) As Ordered
== END ==
LOC: SKLAB5 07:11
PROVIDERS: ATTEND Internal Medicine
DX: D64.9 Anemia, unspecified (principal)

== ENCOUNTER → 2018-09-08 | Outpatient (REF) | payer MEDICARE ==
[~2018-09-08] MED LIST changes: -LOSA50TA73; -LOSA50TA73 PO; +LOSA50TA88; +LOSA50TA88 PO
[2018-09-08 18:20] LABS: PERCENT SATURATION 17.4 % (13.2-45.0)
== END ==
LOC: M LAB REF 17:27
PROVIDERS: ATTEND Internal Medicine
DX: D50.9 Iron deficiency anemia, unspecified (principal)

== ENCOUNTER → 2018-11-09 | Outpatient (REF) | payer MEDICARE ==
[~2018-11-09] MED LIST changes: -ALEN70TA57 PO; +ALEN70TA74 PO; -NORC1TAB4 PO; +NORC1TAB7 PO
== END ==
LOC: M LAB REF 12:42
PROVIDERS: ATTEND Internal Medicine
DX: C18.2 Malignant neoplasm of ascending colon (principal)

== ENCOUNTER 2018-12-19 11:29 | Day surgery (SDC) | payer MEDICARE ==
[~2018-12-19] VITALS: Ht 157.5 cm; Wt 45.3 kg
[2018-12-19] MEDS ORDERED: PROPOFOL 200 MG/20 ML VIAL As Ordered ONE ×2 (12:51→12:58)
--- NOTE | 2018-12-19 13:14 | ROOR ---
Patient Name: Aric Orourke Procedure Date: 12/19/2018 12:26 PM Date of : 1940 Age: 78 Room: [facility] Gender: Female Note Status: Finalized Procedure: Total Colonoscopy to Cecum + Cold Snare Polypectomy + Hemoclips Indications: High risk colon cancer surveillance: Personal history of colonic polyps, Last colonoscopy: 2010 Providers: Lopez Jeong MD Referring MD: Liliane Payne DO Requesting Provider: Medicines: Monitored Anesthesia Care Complications: No immediate complications. Procedure: Pre-Anesthesia Assessment: - The heart rate, respiratory rate, oxygen saturations, blood pressure, adequacy of pulmonary ventilation, and response to care were monitored throughout the procedure. The Colonoscope was introduced through the anus and advanced to the cecum, identified by appendiceal orifice and ileocecal valve. The colonoscopy was performed without difficulty. The patient tolerated the procedure well. The quality of the bowel preparation was excellent. Findings: The perianal and digital rectal examinations were normal. Non-bleeding internal hemorrhoids were found during retroflexion. The hemorrhoids were small and Grade I (internal hemorrhoids that do not prolapse). Multiple small and large-mouthed diverticula were found in the recto-sigmoid colon, sigmoid colon and descending colon. Two sessile polyps were found in the cecum. The polyps were small in size. These polyps were removed with a cold biopsy forceps. Resection and retrieval were complete. A medium polyp was found in the transverse colon proximal transverse colon. The polyp was semi-pedunculated. The polyp was removed with a cold snare. Resection and retrieval were complete. To prevent bleeding after the polypectomy, two hemostatic clips were successfully placed (MR conditional). There was no bleeding at the end of the procedure. The exam was otherwise without abnormality on direct and retroflexion views. Impression: - Non-bleeding internal hemorrhoids. - Diverticulosis in the recto-sigmoid colon, in the sigmoid colon and in the descending colon. - Two small polyps in the cecum, removed with a cold biopsy forceps. Resected and retrieved. - One medium polyp in the transverse colon in the proximal transverse colon, removed with a cold snare. Resected and retrieved. Clips (MR conditional) were placed. - The examination was otherwise normal on direct and retroflexion views. - The exam was otherwise normal to the cecum. Recommendation: - Patient has a contact number available for emergencies. The signs and symptoms of potential delayed complications were discussed with the patient. Return to normal activities tomorrow. Written discharge instructions were provided to the patient. - High fiber diet. - Discharge patient to home. - Continue present medications. - Await pathology results. - Telephone GI clinic for pathology results in 1 week. - Repeat colonoscopy for symptoms only. - Return to referring physician. - The findings and recommendations were discussed with the patient's family. Lopez Jeong MD Lopez Jeong MD 12/19/2018 1:14:01 PM Electronically signed by Lopez Jeong MD Number of Addenda: 0 Note Initiated On: 12/19/2018 12:26 PM Estimated Blood Loss: Estimated blood loss: none.
[2018-12-19] MEDS ORDERED: NS 1,000 ML IV ONE (13:15)
[2018-12-19 14:23] VITALS: BP 173/71
== END 2018-12-19 14:15 | disposition home or self-care (01) ==
LOC: M OPP 11:29
PROVIDERS: ATTEND Internal Medicine Gastroenterology
DX: Z12.11 Encounter for screening for malignant neoplasm of colon (principal); Z86.010 Personal history of colon polyps; K64.0 First degree hemorrhoids; D12.0 Benign neoplasm of cecum; D12.3 Benign neoplasm of transverse colon; K57.30 Diverticulosis of large intestine without perforation or abscess without bleeding; Z79.899 Other long term (current) drug therapy; Z87.891 Personal history of nicotine dependence

== ENCOUNTER → 2019-02-05 | Outpatient (REF) | payer MEDICARE ==
[2019-02-05 18:02] LABS: PERCENT SATURATION 36.1 % (13.2-45.0)
[2019-02-06 08:41] LABS: CA 125 15.5 U/ML (<30.2)
== END ==
LOC: M LAB REF 17:00
PROVIDERS: ATTEND Internal Medicine
DX: R63.4 Abnormal weight loss (principal); D50.9 Iron deficiency anemia, unspecified; R71.8 Other abnormality of red blood cells

== ENCOUNTER → 2019-02-14 | Outpatient (CLI) | payer MEDICARE ==
[~2019-02-14] MED LIST changes: +AMOX400S PO; +AUGM875T28 PO; +MEGE400S10 PO; -SERT-155 PO; +SERT50TA29 PO
--- NOTE | 2019-02-16 20:07 | REP ---
REASON FOR EXAM: Pulmonary nodule followup. COMPARISON: PET/CT 10/19/2012 showed hypermetabolic activity in the thyroid gland on the right. No other abnormal hypermetabolic activity was noted. After the intravenous administration of 8.59 millicuries of FDG-18 triplane whole body PET/CT was performed from the skull base of the mid thigh. There is mild diffuse increased metabolism seen in the region of the left supraspinatus tendon with SUV values ranging from 2.8-3.2. There is hypermetabolism seen adjacent to the left hip prosthesis in the femoral head/neck region with SUV values approximately 3.8. There is a focal area of hypermetabolic activity seen in the right posterior hemipelvis which is likely bowel contaminant. There are no other areas of abnormal hypermetabolism seen in the neck, chest, abdomen, or pelvis. IMPRESSION: 1. 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 This should be correlated clinically and if necessary obtain shoulder MRI. 2. Uptake seen in the region of the left hip prosthesis possibly secondary to loosening. If that is of clinical concern, then a triple phase bone scan should be considered. Additionally, inflammatory change from an overuse could also be considered. Infection is less likely unless it is of clinical concern. 3. Hypermetabolic activity in the right posterior hemipelvis, but likely bowel uptake, however, I would recommend contrast enhanced CT examination of the pelvis with both oral bowel preparatory contrast and intravenous contrast for further evaluation. It should be stated that I have reviewed the CT scan of 11/22/2018 and the hypermetabolism may in fact be secondary to uterine myomatous changes. I would also recommend further pelvic evaluation with transvesical and transvaginal pelvic ultrasonography. Electronically Signed by Greg Santoyo DO 02/17/2019 09:01 A
== END ==
LOC: M PLARAD 11:46
PROVIDERS: ATTEND Internal Medicine
DX: R91.1 Solitary pulmonary nodule (principal); R63.4 Abnormal weight loss
CPT/HCPCS: 78815; A9552

== ENCOUNTER 2019-05-29 14:47 | Emergency (ER) | payer MEDICARE ==
[~2019-05-29] VITALS: Ht 162.6 cm; Wt 45.1 kg
[~2019-05-29 14:47] MED LIST changes: -AMOX400S PO; -AUGM875T28 PO
[2019-05-29 17:56] VITALS: BP 145/65
[2019-05-29] MEDS ORDERED: AUGM875T28 PO (18:15)
[2019-05-29] MEDS ORDERED: AUGMENTIN 875 MG TAB PO ONE (18:15)
[2019-05-29] MEDS ORDERED: AMOX400S PO (18:28)
== END 2019-05-29 19:39 | disposition home or self-care (01) ==
LOC: M ED 14:47
DX: S61.451A Open bite of right hand, initial encounter (principal); W54.0XXA Bitten by dog, initial encounter; Y92.099 Unspecified place in other non-institutional residence as the place of occurrence of the external cause; Y93.9 Activity, unspecified; Y99.9 Unspecified external cause status; I10 Essential (primary) hypertension; J45.909 Unspecified asthma, uncomplicated; F41.9 Anxiety disorder, unspecified; F32.9 Major depressive disorder, single episode, unspecified; M85.80 Other specified disorders of bone density and structure, unspecified site; Z79.899 Other long term (current) drug therapy

== ENCOUNTER → 2020-04-30 | Outpatient (REF) | payer MEDICARE ==
[~2020-04-30] MED LIST changes: +AMOX400S PO; +AUGM875T28 PO; -MONT10TA2 PO; +MONT10TA4 PO
== END ==
LOC: M LAB REF 16:27
PROVIDERS: ATTEND Internal Medicine
DX: M81.0 Age-related osteoporosis without current pathological fracture (principal)

== ENCOUNTER → 2020-10-30 | Outpatient (REF) | payer MEDICARE ==
[~2020-10-30] MED LIST changes: -ALEN70TA74 PO; +ALEN70TA82 PO; +ASPI-569 PO; -ASPI81TAEC PO; +FERR324T21 PO; -FERR325T16 PO; +MONT10TA10 PO; -MONT10TA4 PO
== END ==
LOC: M LAB REF 16:25
PROVIDERS: ATTEND Internal Medicine
DX: Z51.81 Encounter for therapeutic drug level monitoring (principal); Z79.899 Other long term (current) drug therapy

== ENCOUNTER → 2020-11-07 | Outpatient (CLI) | payer MEDICARE ==
--- NOTE | 2020-11-07 15:14 | DEXAMM ---
INDICATION: M81.0 AGE RELATED OSTEOPOROSIS. COMPARISON: 11/02/2016, 07/25/2014. TECHNIQUE: Bone density was measured using dual-energy x-ray absorptiometry (DEXA). FINDINGS: AP SPINE L1-L4 BMD 0.818 g/cm2 Young Adult T-Score -3.0 Age Matched Z-Score -1.2. RT FEMUR, TOTAL BMD 0.622 g/cm2 Young Adult T-Score -3.1 Age Matched Z-Score -1.1. RT NECK BMD 0.617 g/cm2 Young Adult T-Score -3.0 Age Matched Z-Score -0.9. IMPRESSION: There is osteoporosis of the spine. There is osteoporosis of the right hip. The density of the spine has decreased 8.8% since the initial exam on 07/25/2014. The density of the spine decreased 3.9% since most recent exam on 11/02/2016. The density of the right hip has decreased 10.4% since the initial exam on 07/25/2014. The density of the right hip has decreased 5.3% since the most recent exam on 11/02/2016. FOLLOW-UP: Recommendation for the next bone density exam: 2 years. <Electronically signed by Maynor Gloria > 11/07/20 0612
== END ==
LOC: M WHC 12:28
PROVIDERS: ATTEND Internal Medicine
DX: M81.0 Age-related osteoporosis without current pathological fracture (principal)

== ENCOUNTER 2020-12-07 22:38 | Emergency (ER) | payer MEDICARE ==
[~2020-12-07] VITALS: Ht 170.2 cm; Wt 54.1 kg
[2020-12-07 23:05] LABS: BASO % 0.4 % (0.0-1.0); EOS % 0.1 % (0.0-3.0); HEMATOCRIT 45.5 % (36.0-47.0); HEMOGLOBIN 13.9 g/dl (12.0-15.5); LYMPH # 1.6 10^3/uL (1.5-5.0); LYMPH % 23.2 % (24.0-44.0); MEAN CORPUSCULAR HGB CONC 30.5 g/dl (32.0-36.5); MEAN CORPUSCULAR VOLUME 91.5 fl (80.0-96.0); MONO # 0.5 10^3/uL (0.0-0.8); MONO % 7.3 % (2.0-8.0); NEUTROPHILS # 4.7 10^3/uL (1.5-8.5); PLATELET COUNT, AUTOMATED 185 10^3/uL (150-450); RED BLOOD COUNT 4.97 10^6/uL (4.00-5.40)
[2020-12-07] MEDS ORDERED: ACETAMINOPHEN TAB 650MG DOSE (2X325MG) PO ONE (23:10)
[2020-12-07] MEDS ORDERED: D31000TA2 PO (23:14)
[2020-12-07] MEDS ORDERED: ZOLO100T PO (23:14)
[2020-12-07] MEDS ORDERED: FERR32TA PO (23:14)
[2020-12-07] MEDS ORDERED: MIRT1TAB15 PO (23:14)
[2020-12-07] MEDS ORDERED: AMLO1TAB24 PO (23:14)
--- NOTE | 2020-12-07 23:49 | REPVR ---
PROCEDURE INFORMATION: Exam: CT Head Without Contrast Exam date and time: 12/07/2020 11:29 PM Age: 80 years old Clinical indication: Injury or trauma; Fall; Blunt trauma (contusions or hematomas); Consciousness not specified TECHNIQUE: Imaging protocol: Computed tomography of the head without contrast. Radiation optimization: All CT scans at this facility use at least one of these dose optimization techniques: automated exposure control; mA and/or kV adjustment per patient size (includes targeted exams where dose is matched to clinical indication); or iterative reconstruction. COMPARISON: No relevant prior studies available. FINDINGS: Brain: Mild decreased attenuation of the supratentorial white matter is likely secondary to chronic microvascular ischemia. No acute intracranial hemorrhage. Cerebral ventricles: Ventricular and subarachnoid spaces are age appropriate. Paranasal sinuses: Visualized sinuses are unremarkable. No fluid levels. Mastoid air cells: Visualized mastoid air cells are well aerated. Vasculature: Intracranial vascular calcification. Bones/joints: Unremarkable. No acute fracture. Soft tissues: Right posterior scalp soft tissue injury. IMPRESSION: No acute intracranial abnormality. Electronically signed by: Judd Quintanilla On 12/07/2020 23:49:25 PM
--- NOTE | 2020-12-07 23:58 | REPVR ---
PROCEDURE INFORMATION: Exam: XR Ribs with PA Chest Exam date and time: 12/07/2020 11:45 PM Age: 80 years old Clinical indication: Other: Fall TECHNIQUE: Imaging protocol: XR bilateral ribs with PA chest. Views: 4 views COMPARISON: NV Chest, 1 view 06/01/2018 6:55 PM FINDINGS: Lungs: Mild pulmonary hyperinflation with increased lucency of lung. Minimal scattered scar. Pleural spaces: No pneumothorax. Blunted left costophrenic angle which appears to reflect scar is unchanged from the prior study. Heart/Mediastinum: Unremarkable. No cardiomegaly. Bones/joints: There appear to be old fractures of the right 7th and 8th ribs posteriorly. Probable residua of old left rib fractures laterally which are unchanged. IMPRESSION: 1. Old lateral left rib fractures with associated left pleural and parenchymal scar and old fractures of the right 7th and 8th ribs posteriorly. 2. Otherwise negative bilateral ribs. No gross acute fractures are seen. 3. Stable chest since 06/01/2018 with suggestion of some degree of COPD and probable bullous change. Electronically signed by: Raji Galicia On 12/07/2020 23:58:35 PM
--- NOTE | 2020-12-07 23:58 | REPVR ---
PROCEDURE INFORMATION: Exam: CT Cervical Spine Without Contrast Exam date and time: 12/07/2020 11:29 PM Age: 80 years old Clinical indication: Injury or trauma; Fall; Blunt trauma TECHNIQUE: Imaging protocol: Computed tomography images of the cervical spine without contrast. Radiation optimization: All CT scans at this facility use at least one of these dose optimization techniques: automated exposure control; mA and/or kV adjustment per patient size (includes targeted exams where dose is matched to clinical indication); or iterative reconstruction. COMPARISON: PT PET/CT Skull/mid thigh 02/14/2019 2:15 PM FINDINGS: Bones/joints: There is moderate to severe compression fracture involving C7. Osseous retropulsion measures 4 mm. Mjen-on-[id number] superior endplate compression fractures involving T1 and T2. Moderate superior endplate compression fracture involving T3. Displaced fracture involving the spinous process of C6 extending to the bilateral lamina. Minimally displaced fracture involving the right articular facet of C7. Discs/Spinal canal/Neural foramina: Central canal is poorly evaluated secondary to technique. Lungs: Cardiac at the lung apices. Pleural spaces: No visible pneumothorax. Soft tissues: Unremarkable. IMPRESSION: 1. Displaced fracture involving the spinous process of C6 extending to the bilateral lamina. 2. Minimally displaced fracture involving the right articular set of C7. 3. Moderate to severe compression fracture involving C7, most likely acute. C7 osseous retropulsion measures up to 4 mm. 4. Superior endplate compression fractures involving T1, T2 and T3. Fractures are likely recent as well, definitive characterization with MRI may be considered. THIS REPORT CONTAINS FINDINGS THAT MAY BE CRITICAL TO PATIENT CARE. The findings were verbally communicated via telephone conference with Dr. Leblanc at 11:56 PM EST on 12/07/2020. The findings were acknowledged and understood. Electronically signed by: Judd Quintanilla On 12/07/2020 23:57:49 PM
[2020-12-08 00:02] LABS: BLOOD UREA NITROGEN 16 MG/DL (7-18); CALCIUM LEVEL 9.5 MG/DL (8.8-10.2); CARBON DIOXIDE LEVEL 32 MEQ/L (21-32); CHLORIDE LEVEL 102 MEQ/L (98-107); CK-MB VALUE MASS 12.6 NG/ML (<3.6); CPK CREATINE PHOSPHOKINASE 285 U/L (26-192); CREATININE FOR GFR 0.78 MG/DL (0.55-1.30); FREE T4 0.92 NG/DL (0.76-1.46); GLOMERULAR FILTRATION RATE > 60.0 (>39); GLUCOSE, FASTING 134 MG/DL (70-100); MB/CK RELATIVE INDEX 4.42 (< OR =4); POTASSIUM SERUM 3.9 MEQ/L (3.5-5.1); SODIUM LEVEL 141 MEQ/L (136-145); TROPONIN I < 0.02 NG/ML (< 0.10)
[2020-12-08 00:55] LABS: RSV AMPLIFICATION NEGATIVE (NEGATIVE)
[2020-12-08 01:15] VITALS: BP 156/83
--- NOTE | 2020-12-08 09:35 | ECGEPIP ---
[facility] - ED Test Date: 2020-12-07 Pat Name: GEORGI LAM Department: Room: - Gender: Female [employer]: : 1940 Requested By: ERNESTINE Chase Order Number: [id number] Reading MD: Isela Wolf Measurements Intervals Melvin Rate: 97 P: 46 ND: 136 QRS: -13 QRSD: 82 T: 25 QT: 344 QTc: 436 Interpretive Statements Sinus rhythm with premature atrial complexes Nonspecific ST abnormality increased rate/ectopy 01/25/17 Electronically Signed on 12-08-2020 9:35:38 EDT by Isela Wolf
== END 2020-12-08 01:25 | disposition short-term general hospital (02) ==
LOC: M ED 22:38
DX: S12.000A Unspecified displaced fracture of first cervical vertebra, initial encounter for closed fracture (principal); W10.9XXA Fall (on) (from) unspecified stairs and steps, initial encounter; Y92.009 Unspecified place in unspecified non-institutional (private) residence as the place of occurrence of the external cause; Y93.9 Activity, unspecified; Y99.9 Unspecified external cause status; Z79.899 Other long term (current) drug therapy

== ENCOUNTER → 2020-12-23 | Outpatient (REF) ==
[~2020-12-23] MED LIST changes: +AMLO1TAB24 PO; +D31000TA2 PO; +FERR32TA PO; +MIRT1TAB15 PO; +ZOLO100T PO
[2020-12-23 09:21] LABS: BLOOD UREA NITROGEN 23 MG/DL (7-18); CALCIUM LEVEL 9.2 MG/DL (8.8-10.2); CARBON DIOXIDE LEVEL 32 MEQ/L (21-32); CHLORIDE LEVEL 107 MEQ/L (98-107); CREATININE FOR GFR 0.47 MG/DL (0.55-1.30); GLOMERULAR FILTRATION RATE > 60.0 (>39); GLUCOSE, FASTING 80 MG/DL (70-100); POTASSIUM SERUM 4.4 MEQ/L (3.5-5.1); SODIUM LEVEL 144 MEQ/L (136-145)
[2020-12-23 09:37] LABS: TOTAL 25(OH) VITAMIN D 41.6 NG/ML (30.0-100.0)
== END ==
LOC: SKLAB5 07:44
DX: I10 Essential (primary) hypertension (principal); M81.0 Age-related osteoporosis without current pathological fracture

== ENCOUNTER → 2021-01-08 | Outpatient (REF) ==
[2021-01-08 10:01] LABS: PERCENT SATURATION 17.2 % (13.2-45.0)
== END ==
LOC: SKLAB5 09:20
DX: D64.9 Anemia, unspecified (principal)

== ENCOUNTER → 2021-02-19 | Outpatient (CLI) | payer MEDICARE ==
--- NOTE | 2021-02-19 15:01 | REP ---
INDICATION: SHORTNESS OF BREATH. COMPARISON: 12/07/2020 TECHNIQUE: Two views FINDINGS: The lungs are emphysematous. There are karate changes and pleural thickening at the left lung base showing no interval change compared to the previous study. There is no evidence of active parenchymal disease. The heart is not enlarged. Scoliosis involves the thoracolumbar spine with the thoracic convexity to the right. Several old, healed rib fractures on the right side. IMPRESSION: No acute process and no interval change. <Electronically signed by Brent Urbano > 02/19/21 [id number]
== END ==
LOC: M WUC 14:08
PROVIDERS: ATTEND Internal Medicine
DX: R06.02 Shortness of breath (principal); M41.85 Other forms of scoliosis, thoracolumbar region

== ENCOUNTER → 2021-06-10 | Outpatient (REF) | payer MEDICARE ==
[~2021-06-10] MED LIST changes: +BUDE10.2 INH; +LOSA50TA28; +LOSA50TA28 PO; -LOSA50TA88; -LOSA50TA88 PO; +MAGN400T2 PO; -MONT10TA10 PO; +MONT10TA97 PO; +PRED10TA2 PO; +SERT25TA21 PO; +VITA500030 PO
== END ==
LOC: M LAB REF 16:41
PROVIDERS: ATTEND Internal Medicine
DX: M81.0 Age-related osteoporosis without current pathological fracture (principal)

== ENCOUNTER → 2021-08-05 | Outpatient (CLI) | payer MEDICARE ==
[~2021-08-05] MED LIST changes: -BUDE10.2 INH; -MAGN400T2 PO; -PRED10TA2 PO; -SERT25TA21 PO; -VITA500030 PO
== END ==
LOC: M RAD 14:42
PROVIDERS: ATTEND Physician Assistant
DX: R05.9 Cough, unspecified (principal); R06.02 Shortness of breath

== ENCOUNTER 2021-08-14 12:17 | Inpatient (IN) | payer MEDICARE ==
[~2021-08-14] VITALS: Ht 167.6 cm; Wt 37.4 kg
[2021-08-14] MEDS: amLODIPine 5 MG TAB PO SCH ×2 (09:00→19:21)
[2021-08-14] MEDS: PANTOPRAZOLE 40MG TAB (PROTONIX) PO SCH ×2 (09:00→19:21)
[2021-08-14 14:07] LABS: BASO % 0.2 % (0.0-1.0); HEMATOCRIT 52.4 % (36.0-47.0); HEMOGLOBIN 15.9 g/dl (12.0-15.5); LYMPH # 0.3 10^3/uL (1.5-5.0); LYMPH % 5.8 % (24.0-44.0); MEAN CORPUSCULAR HEMOGLOBIN 26.6 pg (27.0-33.0); MEAN CORPUSCULAR HGB CONC 30.3 g/dl (32.0-36.5); MEAN CORPUSCULAR VOLUME 87.8 fl (80.0-96.0); MONO # 0.2 10^3/uL (0.0-0.8); MONO % 3.7 % (2.0-8.0); NEUTROPHILS # 5.3 10^3/uL (1.5-8.5); PLATELET COUNT, AUTOMATED 237 10^3/uL (150-450); RED BLOOD COUNT 5.97 10^6/uL (4.00-5.40); WHITE BLOOD COUNT 5.9 10^3/uL (4.0-10.0)
[2021-08-14 14:19] LABS: ABG BASE EXCESS 0.2 (-2.0-2.0); ABG HCO3 24.9 MEQ/L (22.0-26.0); ABG O2 SATURATION 91.8 % (95.0-99.0); ABG PARTIAL PRESSURE CO2 40.5 mmHg (35.0-45.0); ABG PARTIAL PRESSURE O2 60.7 mmHg (75.0-100.0); ABG STANDARD HCO3 24.5 MEQ/L (22.0-26.0); ABG TOTAL CO2 26.1 MEQ/L (23.0-31.0); ABG pH (ARTERIAL) 7.406 UNITS (7.350-7.450)
[2021-08-14 14:46] LABS: ALBUMIN 3.5 GM/DL (3.2-5.2); ALT/SGPT 16 U/L (12-78); BILIRUBIN,DIRECT 0.1 MG/DL (0.0-0.2); BILIRUBIN,TOTAL 0.6 MG/DL (0.2-1.0); BLOOD UREA NITROGEN 24 MG/DL (7-18); CARBON DIOXIDE LEVEL 29 MEQ/L (21-32); CHLORIDE LEVEL 107 MEQ/L (98-107); CREATININE FOR GFR 0.55 MG/DL (0.55-1.30); FREE T4 1.66 NG/DL (0.76-1.46); GLOMERULAR FILTRATION RATE > 60.0 (>32); GLUCOSE, FASTING 128 MG/DL (70-100); NT-PRO BNP 590 PG/ML (<450); POTASSIUM SERUM 4.3 MEQ/L (3.5-5.1); SODIUM LEVEL 145 MEQ/L (136-145); TOTAL PROTEIN 7.6 GM/DL (6.4-8.2)
[2021-08-14] MEDS ORDERED: dexameTHASONE 20MG/5ML VIAL (J1100 PER 1MG) IV ONE (15:05)
[2021-08-14] MEDS ORDERED: SERT25TA21 PO (16:01)
[2021-08-14] MEDS ORDERED: BUDE10.2 INH (16:06)
[2021-08-14] MEDS ORDERED: PRED10TA2 PO (16:06)
[2021-08-14] MEDS ORDERED: VITA500030 PO (16:06)
[2021-08-14] MEDS ORDERED: HOME MED LIST COMPLETE! XX SCH (16:10)
[2021-08-14 17:42] LABS: HEMATOCRIT 48.6 % (36.0-47.0); HEMOGLOBIN 15.2 g/dl (12.0-15.5); LYMPH # 0.2 10^3/uL (1.5-5.0); LYMPH % 3.7 % (24.0-44.0); MEAN CORPUSCULAR HEMOGLOBIN 27.3 pg (27.0-33.0); MEAN CORPUSCULAR HGB CONC 31.3 g/dl (32.0-36.5); MEAN CORPUSCULAR VOLUME 87.4 fl (80.0-96.0); MONO # 0.1 10^3/uL (0.0-0.8); MONO % 2.1 % (2.0-8.0); NEUTROPHILS % 93.5 % (36.0-66.0); PLATELET COUNT, AUTOMATED 230 10^3/uL (150-450); RED BLOOD COUNT 5.56 10^6/uL (4.00-5.40); WHITE BLOOD COUNT 4.3 10^3/uL (4.0-10.0)
[2021-08-14 17:58] LABS: INR 0.93; PROTHROMBIN TIME 12.9 SECONDS (12.7-14.5)
[2021-08-14 18:02] LABS: D-DIMER QUANT 820.99 ng/ml (<500)
[2021-08-14 18:10] LABS: ALBUMIN 3.3 GM/DL (3.2-5.2); ALT/SGPT 17 U/L (12-78); BILIRUBIN,DIRECT 0.2 MG/DL (0.0-0.2); BILIRUBIN,TOTAL 0.4 MG/DL (0.2-1.0); BLOOD UREA NITROGEN 25 MG/DL (7-18); CALCIUM LEVEL 8.6 MG/DL (8.8-10.2); CARBON DIOXIDE LEVEL 30 MEQ/L (21-32); CHLORIDE LEVEL 106 MEQ/L (98-107); CREATININE FOR GFR 0.63 MG/DL (0.55-1.30); FERRITIN 259 NG/ML (8-252); GLOMERULAR FILTRATION RATE > 60.0 (>32); GLUCOSE, FASTING 130 MG/DL (70-100); LDH LACTATE DEHYDROGENASE 153 U/L (84-246); NT-PRO BNP 587 PG/ML (<450); POTASSIUM SERUM 3.5 MEQ/L (3.5-5.1); SODIUM LEVEL 142 MEQ/L (136-145); TOTAL PROTEIN 7.5 GM/DL (6.4-8.2)
[2021-08-14] MEDS: SYMBICORT 160/4.5MCG INHALER 6GM INH SCH (20:00)
[2021-08-14] MEDS ORDERED: REMDESIVIR 200 MG in NS 250 ML IV ONE (20:00)
[2021-08-14] MEDS: SERTRALINE HCL 25 MG TABLET PO SCH ×2 (21:00→22:39)
[2021-08-14] MEDS ORDERED: SODIUM CHLORIDE 0.9% INJ 10 ML SYR IV ONE (22:00)
[2021-08-14] MEDS: NS 0.45% 1,000 ML IV SCH (22:40)
[2021-08-15 05:00] VITALS: BP 186/89
[2021-08-15] MEDS: NS 0.45% 1,000 ML IV SCH ×3 (05:29→22:46)
[2021-08-15] MEDS ORDERED: atenoloL 25 MG TAB PO ONE (05:35)
[2021-08-15] MEDS ORDERED: hydrALAZINE 20MG/ML 1ML VIAL (J0360 PER 20MG) IV ONE (05:40)
[2021-08-15 05:47] VITALS: BP 183/86
[2021-08-15 06:00] VITALS: BP 158/75
[2021-08-15] MEDS: SYMBICORT 160/4.5MCG INHALER 6GM INH SCH ×2 (07:37→20:24)
[2021-08-15 08:35] LABS: HEMATOCRIT 49.1 % (36.0-47.0); HEMOGLOBIN 15.2 g/dl (12.0-15.5); LYMPH # 0.5 10^3/uL (1.5-5.0); LYMPH % 13.4 % (24.0-44.0); MEAN CORPUSCULAR HEMOGLOBIN 27.3 pg (27.0-33.0); MEAN CORPUSCULAR VOLUME 88.3 fl (80.0-96.0); MONO # 0.5 10^3/uL (0.0-0.8); MONO % 12.6 % (2.0-8.0); NEUTROPHILS # 2.9 10^3/uL (1.5-8.5); NEUTROPHILS % 73.7 % (36.0-66.0); PLATELET COUNT, AUTOMATED 232 10^3/uL (150-450); RED BLOOD COUNT 5.56 10^6/uL (4.00-5.40); WHITE BLOOD COUNT 3.9 10^3/uL (4.0-10.0)
[2021-08-15] MEDS: amLODIPine 5 MG TAB PO SCH (09:00)
[2021-08-15] MEDS: PANTOPRAZOLE 40MG TAB (PROTONIX) PO SCH (09:00)
[2021-08-15] MEDS: dexameTHASONE 4 MG/ML 1ML VIAL (J1100 PER 1MG) IV SCH (09:22)
[2021-08-15] MEDS: ENOXAPARIN 30MG/0.3ML SYRINGE (J1650 PER 10MG) SC SCH (09:22)
[2021-08-15 12:27] LABS: BLOOD UREA NITROGEN 24 MG/DL (7-18); CALCIUM LEVEL 8.2 MG/DL (8.8-10.2); CARBON DIOXIDE LEVEL 29 MEQ/L (21-32); CHLORIDE LEVEL 108 MEQ/L (98-107); GLOMERULAR FILTRATION RATE > 60.0 (>32); GLUCOSE, FASTING 96 MG/DL (70-100); POTASSIUM SERUM 3.6 MEQ/L (3.5-5.1); SODIUM LEVEL 145 MEQ/L (136-145)
[2021-08-15 14:30] VITALS: BP 161/77
[2021-08-15] MEDS: REMDESIVIR 100 MG in NS 250 ML IV SCH (17:15)
[2021-08-15] MEDS: SODIUM CHLORIDE 0.9% INJ 10 ML SYR IV SCH (17:16)
[2021-08-15] MEDS: SERTRALINE HCL 25 MG TABLET PO SCH (19:42)
[2021-08-15 19:56] VITALS: BP 147/70
[2021-08-15 22:00] VITALS: O2SAT 95
[2021-08-16 05:33] VITALS: BP 168/76
[2021-08-16] MEDS: NS 0.45% 1,000 ML IV SCH (07:05)
[2021-08-16 07:22] LABS: HEMATOCRIT 46.5 % (36.0-47.0); HEMOGLOBIN 14.1 g/dl (12.0-15.5); LYMPH # 0.5 10^3/uL (1.5-5.0); LYMPH % 9.2 % (24.0-44.0); MEAN CORPUSCULAR HEMOGLOBIN 26.8 pg (27.0-33.0); MEAN CORPUSCULAR HGB CONC 30.3 g/dl (32.0-36.5); MEAN CORPUSCULAR VOLUME 88.4 fl (80.0-96.0); MONO # 0.6 10^3/uL (0.0-0.8); MONO % 12.2 % (2.0-8.0); NEUTROPHILS # 3.9 10^3/uL (1.5-8.5); NEUTROPHILS % 78.4 % (36.0-66.0); PLATELET COUNT, AUTOMATED 223 10^3/uL (150-450); RED BLOOD COUNT 5.26 10^6/uL (4.00-5.40)
[2021-08-16] MEDS: SYMBICORT 160/4.5MCG INHALER 6GM INH SCH ×2 (07:30→20:00)
[2021-08-16 07:35] LABS: INR 0.98; PROTHROMBIN TIME 13.4 SECONDS (12.7-14.5)
[2021-08-16 07:36] LABS: PARTIAL THROMBOPLASTIN TIME 25.9 SECONDS (25.9-37.0)
[2021-08-16 08:31] LABS: ALT/SGPT 15 U/L (12-78); BILIRUBIN,DIRECT 0.1 MG/DL (0.0-0.2); BILIRUBIN,TOTAL 0.4 MG/DL (0.2-1.0); BLOOD UREA NITROGEN 19 MG/DL (7-18); CALCIUM LEVEL 7.5 MG/DL (8.8-10.2); CARBON DIOXIDE LEVEL 28 MEQ/L (21-32); CHLORIDE LEVEL 108 MEQ/L (98-107); CREATININE FOR GFR 0.41 MG/DL (0.55-1.30); FERRITIN 210 NG/ML (8-252); GLOMERULAR FILTRATION RATE > 60.0 (>32); GLUCOSE, FASTING 68 MG/DL (70-100); LDH LACTATE DEHYDROGENASE 196 U/L (84-246); NT-PRO BNP 510 PG/ML (<450); POTASSIUM SERUM 3.6 MEQ/L (3.5-5.1); SODIUM LEVEL 143 MEQ/L (136-145); TOTAL PROTEIN 6.8 GM/DL (6.4-8.2)
[2021-08-16] MEDS: PANTOPRAZOLE 40MG TAB (PROTONIX) PO SCH (08:47)
[2021-08-16] MEDS: amLODIPine 5 MG TAB PO SCH (08:47)
[2021-08-16] MEDS: dexameTHASONE 4 MG/ML 1ML VIAL (J1100 PER 1MG) IV SCH (08:49)
[2021-08-16] MEDS: ENOXAPARIN 30MG/0.3ML SYRINGE (J1650 PER 10MG) SC SCH (08:49)
[2021-08-16] MEDS: KCL 20MEQ IN D5/0.45NS 1000ML 1,000 ML IV SCH ×2 (10:47→17:53)
[2021-08-16 12:43] VITALS: BP 151/72
[2021-08-16 15:59] LABS: MAGNESIUM LEVEL 1.9 MG/DL (1.7-2.2)
[2021-08-16] MEDS: REMDESIVIR 100 MG in NS 250 ML IV SCH (17:11)
[2021-08-16] MEDS: SODIUM CHLORIDE 0.9% INJ 10 ML SYR IV SCH (17:53)
[2021-08-16] MEDS: SERTRALINE HCL 25 MG TABLET PO SCH (20:04)
[2021-08-16 21:26] VITALS: BP 141/79
[2021-08-16 22:00] VITALS: O2SAT 96
[2021-08-17] MEDS: KCL 20MEQ IN D5/0.45NS 1000ML 1,000 ML IV SCH ×4 (00:49→23:30)
[2021-08-17 04:00] VITALS: BP 141/73
[2021-08-17] MEDS: SYMBICORT 160/4.5MCG INHALER 6GM INH SCH ×2 (08:38→19:49)
[2021-08-17] MEDS: amLODIPine 5 MG TAB PO SCH (08:51)
[2021-08-17] MEDS: ENOXAPARIN 30MG/0.3ML SYRINGE (J1650 PER 10MG) SC SCH (08:51)
[2021-08-17] MEDS: PANTOPRAZOLE 40MG TAB (PROTONIX) PO SCH (08:51)
[2021-08-17] MEDS: dexameTHASONE 4 MG/ML 1ML VIAL (J1100 PER 1MG) IV SCH (08:51)
[2021-08-17 09:21] LABS: BASO % 0.1 % (0.0-1.0); HEMATOCRIT 43.9 % (36.0-47.0); HEMOGLOBIN 13.8 g/dl (12.0-15.5); LYMPH # 0.5 10^3/uL (1.5-5.0); LYMPH % 6.8 % (24.0-44.0); MEAN CORPUSCULAR HEMOGLOBIN 26.7 pg (27.0-33.0); MEAN CORPUSCULAR HGB CONC 31.4 g/dl (32.0-36.5); MEAN CORPUSCULAR VOLUME 85.1 fl (80.0-96.0); MONO # 0.9 10^3/uL (0.0-0.8); MONO % 12.9 % (2.0-8.0); NEUTROPHILS # 5.7 10^3/uL (1.5-8.5); NEUTROPHILS % 79.9 % (36.0-66.0); PLATELET COUNT, AUTOMATED 241 10^3/uL (150-450); RED BLOOD COUNT 5.16 10^6/uL (4.00-5.40); WHITE BLOOD COUNT 7.1 10^3/uL (4.0-10.0)
[2021-08-17 09:47] LABS: BLOOD UREA NITROGEN 11 MG/DL (7-18); CALCIUM LEVEL 6.7 MG/DL (8.8-10.2); CARBON DIOXIDE LEVEL 27 MEQ/L (21-32); CHLORIDE LEVEL 106 MEQ/L (98-107); CREATININE FOR GFR 0.42 MG/DL (0.55-1.30); GLOMERULAR FILTRATION RATE > 60.0 (>32); GLUCOSE, FASTING 131 MG/DL (70-100); POTASSIUM SERUM 4.1 MEQ/L (3.5-5.1); SODIUM LEVEL 140 MEQ/L (136-145)
[2021-08-17 16:36] LABS: MAGNESIUM LEVEL 1.6 MG/DL (1.7-2.2)
[2021-08-17] MEDS: REMDESIVIR 100 MG in NS 250 ML IV SCH (17:19)
[2021-08-17] MEDS: SODIUM CHLORIDE 0.9% INJ 10 ML SYR IV SCH (18:14)
[2021-08-17 20:00] VITALS: BP 138/82
[2021-08-17] MEDS: SERTRALINE HCL 25 MG TABLET PO SCH (21:00)
[2021-08-18 04:00] VITALS: BP 124/66
[2021-08-18] MEDS: amLODIPine 5 MG TAB PO SCH (07:29)
[2021-08-18] MEDS: PANTOPRAZOLE 40MG TAB (PROTONIX) PO SCH (07:29)
[2021-08-18] MEDS: SYMBICORT 160/4.5MCG INHALER 6GM INH SCH ×2 (08:26→21:00)
[2021-08-18] MEDS: ENOXAPARIN 30MG/0.3ML SYRINGE (J1650 PER 10MG) SC SCH (08:39)
[2021-08-18] MEDS: dexameTHASONE 4 MG/ML 1ML VIAL (J1100 PER 1MG) IV SCH (08:39)
[2021-08-18] MEDS: KCL 20MEQ IN D5/0.45NS 1000ML 1,000 ML IV SCH ×2 (08:40→17:25)
[2021-08-18 09:57] LABS: HEMATOCRIT 42.1 % (36.0-47.0); HEMOGLOBIN 12.9 g/dl (12.0-15.5); LYMPH # 0.4 10^3/uL (1.5-5.0); LYMPH % 8.1 % (24.0-44.0); MEAN CORPUSCULAR HEMOGLOBIN 26.6 pg (27.0-33.0); MEAN CORPUSCULAR HGB CONC 30.6 g/dl (32.0-36.5); MEAN CORPUSCULAR VOLUME 86.8 fl (80.0-96.0); MONO # 0.6 10^3/uL (0.0-0.8); MONO % 11.6 % (2.0-8.0); NEUTROPHILS # 4.1 10^3/uL (1.5-8.5); NEUTROPHILS % 79.9 % (36.0-66.0); PLATELET COUNT, AUTOMATED 217 10^3/uL (150-450); RED BLOOD COUNT 4.85 10^6/uL (4.00-5.40); WHITE BLOOD COUNT 5.2 10^3/uL (4.0-10.0)
[2021-08-18 10:19] LABS: INR 1.23; PROTHROMBIN TIME 15.9 SECONDS (12.7-14.5)
[2021-08-18 10:20] LABS: PARTIAL THROMBOPLASTIN TIME 30.8 SECONDS (25.9-37.0)
[2021-08-18 11:02] LABS: ALBUMIN 2.5 GM/DL (3.2-5.2); ALT/SGPT 15 U/L (12-78); BILIRUBIN,DIRECT 0.2 MG/DL (0.0-0.2); BILIRUBIN,TOTAL 0.3 MG/DL (0.2-1.0); BLOOD UREA NITROGEN 9 MG/DL (7-18); CALCIUM LEVEL 6.6 MG/DL (8.8-10.2); CARBON DIOXIDE LEVEL 25 MEQ/L (21-32); CHLORIDE LEVEL 109 MEQ/L (98-107); CREATININE FOR GFR 0.35 MG/DL (0.55-1.30); FERRITIN 235 NG/ML (8-252); GLOMERULAR FILTRATION RATE > 60.0 (>32); GLUCOSE, FASTING 101 MG/DL (70-100); LDH LACTATE DEHYDROGENASE 174 U/L (84-246); NT-PRO BNP 244 PG/ML (<450); SODIUM LEVEL 140 MEQ/L (136-145); TOTAL PROTEIN 5.2 GM/DL (6.4-8.2)
[2021-08-18] MEDS ORDERED: OXYMETAZOLINE 0.05% NASAL SPRAY (AFRIN) PRN (11:45)
[2021-08-18 14:00] VITALS: BP 150/72
[2021-08-18] MEDS ORDERED: E-Z-PAQUE 96% w/w SUSP 176GM BTL As Ordered ONE (14:55)
[2021-08-18] MEDS ORDERED: BARIUM SULFATE 700 MG TABLET (E-Z-DISK) As Ordered ONE (14:55)
[2021-08-18] MEDS ORDERED: VARIBAR NECTAR 40% w/v 240ML SUSP BTL As Ordered ONE (14:55)
[2021-08-18] MEDS ORDERED: VARIBAR PUDDING 40% w/v 230ML TUBE As Ordered ONE (14:55)
[2021-08-18] MEDS ORDERED: hydrALAZINE 20MG/ML 1ML VIAL (J0360 PER 20MG) IV PRN (15:35)
[2021-08-18] MEDS: SODIUM CHLORIDE 0.9% INJ 10 ML SYR IV SCH (17:24)
[2021-08-18] MEDS: REMDESIVIR 100 MG in NS 250 ML IV SCH (17:24)
[2021-08-18] MEDS: PANTOPRAZOLE 40MG VIAL (C9113 PER 1) IV SCH (17:24)
[2021-08-18 17:45] LABS: MAGNESIUM LEVEL 1.5 MG/DL (1.7-2.2)
[2021-08-18 20:00] VITALS: BP 121/65
[2021-08-18 20:07] LABS: ANA (HEP2) Negative (.); ANTI SCLERODERMA ANTIBODIES <0.2 AI (0.0-0.9)
[2021-08-18 23:10] VITALS: O2SAT 97
[2021-08-19] MEDS: KCL 20MEQ IN D5/0.45NS 1000ML 1,000 ML IV SCH ×2 (02:14→10:57)
[2021-08-19 04:00] VITALS: BP 132/73
[2021-08-19 07:54] LABS: BASO % 0.3 % (0.0-1.0); HEMATOCRIT 42.2 % (36.0-47.0); HEMOGLOBIN 13.1 g/dl (12.0-15.5); LYMPH # 0.6 10^3/uL (1.5-5.0); LYMPH % 14.1 % (24.0-44.0); MEAN CORPUSCULAR VOLUME 86.8 fl (80.0-96.0); MONO # 0.5 10^3/uL (0.0-0.8); MONO % 13.6 % (2.0-8.0); NEUTROPHILS # 2.8 10^3/uL (1.5-8.5); PLATELET COUNT, AUTOMATED 219 10^3/uL (150-450); RED BLOOD COUNT 4.86 10^6/uL (4.00-5.40); WHITE BLOOD COUNT 3.9 10^3/uL (4.0-10.0)
[2021-08-19] MEDS: SYMBICORT 160/4.5MCG INHALER 6GM INH SCH ×2 (07:58→20:00)
[2021-08-19 08:18] LABS: BLOOD UREA NITROGEN 9 MG/DL (7-18); CALCIUM LEVEL 6.7 MG/DL (8.8-10.2); CARBON DIOXIDE LEVEL 27 MEQ/L (21-32); CHLORIDE LEVEL 111 MEQ/L (98-107); CREATININE FOR GFR 0.35 MG/DL (0.55-1.30); GLOMERULAR FILTRATION RATE > 60.0 (>32); GLUCOSE, FASTING 86 MG/DL (70-100); POTASSIUM SERUM 4.3 MEQ/L (3.5-5.1); SODIUM LEVEL 143 MEQ/L (136-145)
[2021-08-19] MEDS: dexameTHASONE 4 MG/ML 1ML VIAL (J1100 PER 1MG) IV SCH (09:02)
[2021-08-19] MEDS: ENOXAPARIN 30MG/0.3ML SYRINGE (J1650 PER 10MG) SC SCH (09:03)
[2021-08-19] MEDS: PANTOPRAZOLE 40MG VIAL (C9113 PER 1) IV SCH (09:03)
[2021-08-19 10:12] VITALS: O2SAT 97
[2021-08-19 14:00] VITALS: BP 138/75
[2021-08-19 15:15] LABS: MAGNESIUM LEVEL 1.5 MG/DL (1.7-2.2)
[2021-08-19] MEDS: SERTRALINE HCL 25 MG TABLET PO SCH (19:48)
[2021-08-19 22:19] VITALS: O2SAT 96
[2021-08-20 04:00] VITALS: BP 148/79
[2021-08-20 06:36] LABS: HEMOGLOBIN 12.6 g/dl (12.0-15.5); LYMPH # 0.5 10^3/uL (1.5-5.0); LYMPH % 12.5 % (24.0-44.0); MEAN CORPUSCULAR HEMOGLOBIN 26.8 pg (27.0-33.0); MEAN CORPUSCULAR HGB CONC 30.7 g/dl (32.0-36.5); MEAN CORPUSCULAR VOLUME 87.2 fl (80.0-96.0); MONO # 0.6 10^3/uL (0.0-0.8); MONO % 13.4 % (2.0-8.0); NEUTROPHILS # 3.1 10^3/uL (1.5-8.5); NEUTROPHILS % 73.9 % (36.0-66.0); PLATELET COUNT, AUTOMATED 227 10^3/uL (150-450); WHITE BLOOD COUNT 4.2 10^3/uL (4.0-10.0)
[2021-08-20 06:46] LABS: INR 1.09; PARTIAL THROMBOPLASTIN TIME 27.7 SECONDS (25.9-37.0); PROTHROMBIN TIME 14.5 SECONDS (12.7-14.5)
[2021-08-20 07:19] LABS: ALBUMIN 2.6 GM/DL (3.2-5.2); ALT/SGPT 23 U/L (12-78); BILIRUBIN,DIRECT 0.2 MG/DL (0.0-0.2); BILIRUBIN,TOTAL 0.5 MG/DL (0.2-1.0); BLOOD UREA NITROGEN 11 MG/DL (7-18); CALCIUM LEVEL 7.2 MG/DL (8.8-10.2); CARBON DIOXIDE LEVEL 27 MEQ/L (21-32); CHLORIDE LEVEL 109 MEQ/L (98-107); CREATININE FOR GFR 0.33 MG/DL (0.55-1.30); FERRITIN 328 NG/ML (8-252); GLOMERULAR FILTRATION RATE > 60.0 (>32); GLUCOSE, FASTING 85 MG/DL (70-100); LDH LACTATE DEHYDROGENASE 202 U/L (84-246); NT-PRO BNP 342 PG/ML (<450); POTASSIUM SERUM 4.5 MEQ/L (3.5-5.1); SODIUM LEVEL 144 MEQ/L (136-145); TOTAL PROTEIN 5.7 GM/DL (6.4-8.2)
[2021-08-20] MEDS: SYMBICORT 160/4.5MCG INHALER 6GM INH SCH ×2 (08:05→17:47)
[2021-08-20] MEDS: PANTOPRAZOLE 40MG TAB (PROTONIX) PO SCH (09:13)
[2021-08-20] MEDS: ENOXAPARIN 30MG/0.3ML SYRINGE (J1650 PER 10MG) SC SCH (09:14)
[2021-08-20] MEDS: predniSONE 10 MG TAB PO SCH (09:14)
[2021-08-20 17:37] LABS: MAGNESIUM LEVEL 1.6 MG/DL (1.7-2.2)
[2021-08-20] MEDS: SERTRALINE HCL 25 MG TABLET PO SCH (19:54)
[2021-08-20] MEDS ORDERED: PRED10TA2 PO (23:38)
[2021-08-21 06:30] LABS: BASO % 0.2 % (0.0-1.0); HEMATOCRIT 42.1 % (36.0-47.0); LYMPH # 0.6 10^3/uL (1.5-5.0); LYMPH % 15.1 % (24.0-44.0); MEAN CORPUSCULAR HEMOGLOBIN 26.9 pg (27.0-33.0); MEAN CORPUSCULAR HGB CONC 30.9 g/dl (32.0-36.5); MEAN CORPUSCULAR VOLUME 87.2 fl (80.0-96.0); MONO # 0.6 10^3/uL (0.0-0.8); MONO % 14.4 % (2.0-8.0); NEUTROPHILS % 69.8 % (36.0-66.0); PLATELET COUNT, AUTOMATED 241 10^3/uL (150-450); RED BLOOD COUNT 4.83 10^6/uL (4.00-5.40); WHITE BLOOD COUNT 4.2 10^3/uL (4.0-10.0)
[2021-08-21 06:51] LABS: BLOOD UREA NITROGEN 16 MG/DL (7-18); CALCIUM LEVEL 7.8 MG/DL (8.8-10.2); CARBON DIOXIDE LEVEL 32 MEQ/L (21-32); CHLORIDE LEVEL 106 MEQ/L (98-107); CREATININE FOR GFR 0.46 MG/DL (0.55-1.30); GLOMERULAR FILTRATION RATE > 60.0 (>32); GLUCOSE, FASTING 78 MG/DL (70-100); POTASSIUM SERUM 4.2 MEQ/L (3.5-5.1); SODIUM LEVEL 143 MEQ/L (136-145)
[2021-08-21] MEDS ORDERED: MAGN400T2 PO (07:35)
[2021-08-21] MEDS: SYMBICORT 160/4.5MCG INHALER 6GM INH SCH (08:10)
[2021-08-21] MEDS: predniSONE 10 MG TAB PO SCH (08:13)
[2021-08-21] MEDS: ENOXAPARIN 30MG/0.3ML SYRINGE (J1650 PER 10MG) SC SCH (08:13)
[2021-08-21] MEDS: PANTOPRAZOLE 40MG TAB (PROTONIX) PO SCH (08:14)
[2021-08-21] MEDS ORDERED: MAGNESIUM OXIDE 400MG TAB (MAG-OX) PO SCH (09:00)
[2021-08-21 15:10] LABS: MAGNESIUM LEVEL 1.9 MG/DL (1.8-2.4)
== END 2021-08-21 09:52 | DRG 177 ==
LOC: M ED 12:17 → M ED INP 16:33 → M 4MAIN 22:01
PROVIDERS: ADMIT Family Medicine; ATTEND Internal Medicine
PROC: 3E0333Z Introduction of Anti-inflammatory into Peripheral Vein, Percutaneous Approach (ICD-10-PCS; principal; 2021-08-14)
PROC: XW033E5 Introduction of Remdesivir Anti-infective into Peripheral Vein, Percutaneous Approach, New Technology Group 5 (ICD-10-PCS; 2021-08-14)
DX: U07.1 COVID-19 (principal); E43 Unspecified severe protein-calorie malnutrition; Z68.1 Body mass index [BMI] 19.9 or less, adult; J44.9 Chronic obstructive pulmonary disease, unspecified; Z98.1 Arthrodesis status; I10 Essential (primary) hypertension; D64.9 Anemia, unspecified; E03.9 Hypothyroidism, unspecified; E78.5 Hyperlipidemia, unspecified; F32.A Depression, unspecified; F03.90 Unspecified dementia, unspecified severity, without behavioral disturbance, psychotic disturbance, mood disturbance, and anxiety; Z90.49 Acquired absence of other specified parts of digestive tract; Z79.899 Other long term (current) drug therapy; E86.0 Dehydration; K21.9 Gastro-esophageal reflux disease without esophagitis; R13.10 Dysphagia, unspecified

== ENCOUNTER → 2021-10-28 | Outpatient (REF) | payer MEDICARE ==
[~2021-10-28] MED LIST changes: +BUDE10.2 INH; -D31000TA2 PO; +MAGN400T2 PO; +PRED10TA2 PO; +SERT25TA21 PO; +VITA100093 PO; +VITA500030 PO
== END ==
LOC: M LAB REF 12:00
PROVIDERS: ATTEND Internal Medicine
DX: Z51.81 Encounter for therapeutic drug level monitoring (principal)

== ENCOUNTER → 2021-11-02 | Outpatient (CLI) | payer MEDICARE ==
[~2021-11-02] MED LIST changes: +ALBU8.5H; +BREO1INH; +MEGE40SU5
== END ==
LOC: M LABSMTC 09:54
PROVIDERS: ATTEND Internal Medicine Gastroenterology
DX: Z01.812 Encounter for preprocedural laboratory examination (principal); Z20.822 Contact with and (suspected) exposure to COVID-19

== ENCOUNTER 2021-11-06 10:49 | Day surgery (SDC) | payer MEDICARE ==
[~2021-11-06] VITALS: Ht 162.6 cm; Wt 43.5 kg
[~2021-11-06 10:49] MED LIST changes: +NS 1,000 ML IV ONE
[2021-11-06] MEDS ORDERED: LIDOCAINE 2% 100MG/5ML SDV (FOR ANES.) As Ordered ONE (12:10)
[2021-11-06] MEDS ORDERED: propofoL 200 MG/20 ML VIAL As Ordered ONE (12:10)
[2021-11-06] MEDS ORDERED: fentaNYL 100 MCG/2 ML INJECTION As Ordered ONE (12:10)
[2021-11-06 13:00] VITALS: BP 175/82
== END 2021-11-06 13:15 | disposition home or self-care (01) ==
LOC: M OPP 10:49
PROVIDERS: ATTEND Internal Medicine Gastroenterology
DX: K44.9 Diaphragmatic hernia without obstruction or gangrene (principal); R13.10 Dysphagia, unspecified; I73.00 Raynaud's syndrome without gangrene; J44.9 Chronic obstructive pulmonary disease, unspecified; Z79.899 Other long term (current) drug therapy; Z86.2 Personal history of diseases of the blood and blood-forming organs and certain disorders involving the immune mechanism; Z86.39 Personal history of other endocrine, nutritional and metabolic disease; Z87.891 Personal history of nicotine dependence
CPT/HCPCS: 43235; J3010

== ENCOUNTER → 2023-11-14 | Outpatient (REF) | payer MEDICARE, MEDICAID ==
[~2023-11-14] MED LIST changes: +MEGE400O12 PO; -MEGE400S10 PO; -MEGE40SU5; +MEGE40SU6; -NS 1,000 ML IV ONE
[2023-11-14 11:17] LABS: HEMATOCRIT 43.6 % (36.0-47.0); HEMOGLOBIN 13.4 g/dl (12.0-15.5); MEAN CORPUSCULAR HEMOGLOBIN 28.8 pg (27.0-33.0); MEAN CORPUSCULAR HGB CONC 30.7 g/dl (32.0-36.5); MEAN CORPUSCULAR VOLUME 93.6 fl (80.0-96.0); PLATELET COUNT, AUTOMATED 259 10^3/uL (150-450); RED BLOOD COUNT 4.66 10^6/uL (4.00-5.40); WHITE BLOOD COUNT 4.2 10^3/uL (4.0-10.0)
[2023-11-14 11:53] LABS: THYROID STIMULATING HORMONE 1.171 uIU/ML (0.55-4.78)
[2023-11-14 11:54] LABS: BLOOD UREA NITROGEN 20 MG/DL (9-23); CARBON DIOXIDE LEVEL 35 MMOL/L (20-31); CHLORIDE LEVEL 103 MMOL/L (98-107); CREATININE FOR GFR 0.63 MG/DL (0.55-1.30); GLOMERULAR FILTRATION RATE > 60.0 (>32); GLUCOSE, FASTING 113 MG/DL (74-106); POTASSIUM SERUM 4.4 MMOL/L (3.5-5.1); SODIUM LEVEL 143 MMOL/L (136-145)
== END ==
PROVIDERS: ATTEND Physician Assistant
DX: R63.4 Abnormal weight loss (principal)

== ENCOUNTER → 2023-12-07 | Outpatient (REF) | payer MEDICARE, MEDICAID ==
[2023-12-07 12:04] LABS: APPEARANCE, URINE CLOUDY (CLEAR); BACTERIA, URINE AUTO 1+ (NEGATIVE); BILIRUBIN, URINE AUTO NEGATIVE (NEGATIVE); BLOOD, URINE BLOOD 2+ (NEGATIVE); CALCIUM OXALATE CRYSTALS LARGE; COLOR, URINE YELLOW (YELLOW); GLUCOSE, URINE (UA) AUTO NEGATIVE (NEGATIVE); KETONE, URINE AUTO NEGATIVE (NEGATIVE); LEUKOCYTE ESTERASE, URINE AUTO 2+ (NEGATIVE); MUCUS, URINE SMALL (NEGATIVE); NITRITE, URINE AUTO NEGATIVE (NEGATIVE); PROTEIN, URINE AUTO 2+ mg/dL (NEGATIVE); RBC, URINE AUTO 132 /HPF (0-3); SPECIFIC GRAVITY URINE AUTO 1.024 (1.002-1.035); SQUAMOUS EPITHELIAL CELL UR AU 1 /HPF (0-6); WBC, URINE AUTO 43 /HPF (0-3)
== END ==
PROVIDERS: ATTEND Physician Assistant
DX: N39.0 Urinary tract infection, site not specified (principal)

== ENCOUNTER → 2024-01-26 | Outpatient (CLI) | payer MEDICARE, MEDICAID | LOC: M RAD 07:20 | PROVIDERS: ATTEND Physician Assistant | DX: S22.060A Wedge compression fracture of T7-T8 vertebra, initial encounter for closed fracture (principal); S22.070A Wedge compression fracture of T9-T10 vertebra, initial encounter for closed fracture; S22.080D Wedge compression fracture of T11-T12 vertebra, subsequent encounter for fracture with routine healing; M54.50 Low back pain, unspecified; Y93.9 Activity, unspecified; Y92.9 Unspecified place or not applicable ==

== ENCOUNTER → 2024-03-01 | Outpatient (REF) | payer MEDICARE, MEDICAID | PROVIDERS: ATTEND Internal Medicine | DX: R63.4 Abnormal weight loss (principal); Z53.8 Procedure and treatment not carried out for other reasons ==

== ENCOUNTER → 2024-03-02 | Outpatient (REF) | payer MEDICARE, MEDICAID ==
[2024-03-02 07:32] LABS: BASO % 0.5 % (0.0-1.0); EOS # 0.1 10^3/uL (0.0-0.5); EOS % 2.2 % (0.0-3.0); HEMATOCRIT 41.3 % (36.0-47.0); HEMOGLOBIN 12.6 g/dl (12.0-15.5); LYMPH % 17.5 % (24.0-44.0); MEAN CORPUSCULAR HEMOGLOBIN 29.5 pg (27.0-33.0); MEAN CORPUSCULAR HGB CONC 30.5 g/dl (32.0-36.5); MEAN CORPUSCULAR VOLUME 96.7 fl (80.0-96.0); MONO # 0.6 10^3/uL (0.0-0.8); MONO % 10.8 % (2.0-8.0); NEUTROPHILS # 3.8 10^3/uL (1.5-8.5); NEUTROPHILS % 68.6 % (36.0-66.0); PLATELET COUNT, AUTOMATED 206 10^3/uL (150-450); RED BLOOD COUNT 4.27 10^6/uL (4.00-5.40); WHITE BLOOD COUNT 5.6 10^3/uL (4.0-10.0)
[2024-03-02 07:58] LABS: ALBUMIN 3.1 G/DL (3.2-5.2); ALKALINE PHOSPHATASE 181 U/L (46-116); ALT/SGPT < 9 U/L (7.0-40); AST/SGOT 11 U/L (<34); BILIRUBIN,TOTAL 0.3 MG/DL (0.3-1.2); BLOOD UREA NITROGEN 17 MG/DL (9-23); CALCIUM LEVEL 9.2 MG/DL (8.3-10.6); CARBON DIOXIDE LEVEL 36 MMOL/L (20-31); CHLORIDE LEVEL 107 MMOL/L (98-107); CREATININE FOR GFR 0.68 MG/DL (0.55-1.30); GLOMERULAR FILTRATION RATE > 60.0 (>32); GLUCOSE, FASTING 77 MG/DL (74-106); POTASSIUM SERUM 4.1 MMOL/L (3.5-5.1); SODIUM LEVEL 144 MMOL/L (136-145); TOTAL PROTEIN 6.2 G/DL (5.7-8.2)
== END ==
PROVIDERS: ATTEND Internal Medicine
DX: R63.4 Abnormal weight loss (principal)

== ENCOUNTER → 2024-03-13 | Outpatient (REF) | payer MEDICARE, MEDICAID | PROVIDERS: ATTEND Internal Medicine | DX: N39.0 Urinary tract infection, site not specified (principal) ==

== ENCOUNTER → 2024-03-14 | Outpatient (REF) | payer MEDICARE, MEDICAID ==
[2024-03-14 11:57] LABS: HEMATOCRIT 46.6 % (36.0-47.0); MEAN CORPUSCULAR HEMOGLOBIN 29.2 pg (27.0-33.0); MEAN CORPUSCULAR VOLUME 97.1 fl (80.0-96.0); PLATELET COUNT, AUTOMATED 294 10^3/uL (150-450); WHITE BLOOD COUNT 12.5 10^3/uL (4.0-10.0)
[2024-03-14 12:19] LABS: BLOOD UREA NITROGEN 14 MG/DL (9-23); CALCIUM LEVEL 9.8 MG/DL (8.3-10.6); CARBON DIOXIDE LEVEL 35 MMOL/L (20-31); CHLORIDE LEVEL 102 MMOL/L (98-107); CREATININE FOR GFR 0.58 MG/DL (0.55-1.30); GLOMERULAR FILTRATION RATE > 60.0 (>32); GLUCOSE, FASTING 74 MG/DL (74-106); SODIUM LEVEL 143 MMOL/L (136-145)
== END ==
PROVIDERS: ATTEND Internal Medicine
DX: R31.9 Hematuria, unspecified (principal)

== ENCOUNTER → 2024-03-26 | Outpatient (REF) | payer MEDICARE, MEDICAID ==
[2024-03-26 15:03] LABS: HEMATOCRIT 43.5 % (36.0-47.0); MEAN CORPUSCULAR HEMOGLOBIN 29.6 pg (27.0-33.0); MEAN CORPUSCULAR HGB CONC 29.9 g/dl (32.0-36.5); MEAN CORPUSCULAR VOLUME 99.1 fl (80.0-96.0); PLATELET COUNT, AUTOMATED 435 10^3/uL (150-450); RED BLOOD COUNT 4.39 10^6/uL (4.00-5.40); WHITE BLOOD COUNT 25.9 10^3/uL (4.0-10.0)
[2024-03-26 15:30] LABS: CALCIUM LEVEL 9.1 MG/DL (8.3-10.6); CREATININE FOR GFR 0.96 MG/DL (0.55-1.30); GLOMERULAR FILTRATION RATE 59.1 (>32); POTASSIUM SERUM 4.9 MMOL/L (3.5-5.1)
== END ==
PROVIDERS: ATTEND Internal Medicine
DX: I95.9 Hypotension, unspecified (principal)

== ENCOUNTER → 2024-03-27 | Outpatient (REF) | payer MEDICARE, MEDICAID ==
[2024-03-27 10:24] LABS: HEMATOCRIT 39.6 % (36.0-47.0); HEMOGLOBIN 11.9 g/dl (12.0-15.5); MEAN CORPUSCULAR HEMOGLOBIN 29.5 pg (27.0-33.0); MEAN CORPUSCULAR HGB CONC 30.1 g/dl (32.0-36.5); PLATELET COUNT, AUTOMATED 372 10^3/uL (150-450); RED BLOOD COUNT 4.04 10^6/uL (4.00-5.40); WHITE BLOOD COUNT 17.4 10^3/uL (4.0-10.0)
[2024-03-27 10:40] LABS: BLOOD UREA NITROGEN 26 MG/DL (9-23); CALCIUM LEVEL 8.4 MG/DL (8.3-10.6); CARBON DIOXIDE LEVEL 34 MMOL/L (20-31); CHLORIDE LEVEL 102 MMOL/L (98-107); CREATININE FOR GFR 0.72 MG/DL (0.55-1.30); GLOMERULAR FILTRATION RATE > 60.0 (>32); GLUCOSE, FASTING 75 MG/DL (74-106); POTASSIUM SERUM 4.1 MMOL/L (3.5-5.1); SODIUM LEVEL 141 MMOL/L (136-145)
== END ==
PROVIDERS: ATTEND Internal Medicine
DX: R06.02 Shortness of breath (principal); J98.4 Other disorders of lung